=== PATIENT | female | born 1995 | race Caucasian/White ===

== ENCOUNTER 2017-09-20 01:19 | Emergency (ER) | payer OTHER, SELFPAY ==
[2017-09-20 01:31] VITALS: BP 141/83; PULSE 89; RESP 16; TEMP 37.2; O2SAT 98; BMI 44.1
[2017-09-20 01:55] LABS: Appearance,Urine CLEAR (Clear); Bilirubin,Urine Negative (Negative); Blood, Urine TRACE-I (Negative); Color,Urine YELLOW (Yellow); Glucose,Urine (UA) Negative (Negative); Ketones,Urine Negative (Negative); Leukocyte Esterase,Urine Negative (Negative); Microscopic, Urine URINE MICROSCOPIC (MICROSCOPIC); Nitrate,Urine Negative (Negative); Protein,Urine Negative (Negative); Specific Gravity, Urine >= 1.030 (1.005-1.030); Urobilinogen,Urine 0.2 EU/dl (0.2)
[2017-09-20 01:58] LABS: Urine Pregnancy, HCG Qual. Negative (Negative)
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
--- NOTE | 2017-09-20 02:12 | ED_ITS ---
ED Disposition Clinical Impression: Strain of lumbar region Qualifiers: Encounter type: initial encounter Qualified Code(s): S39.012A - Strain of muscle, fascia and tendon of lower back, initial encounter Disposition: Home, Self-Care Condition on Discharge: Good Instructions: DI for Low Back Pain Prescriptions: Cyclobenzaprine HCl [Flexeril 10mg tablet] 10 mg PO BID 30 Days #14 tab Meloxicam [Mobic 7.5mg Tab] 7.5 mg PO BID #14 tab Referrals: Chin Cole [Primary Care Provider] - - Critical Care Critical Care Time: No Attestation: On 09/20/17, the high probability of a clinically significant, sudden or life threatening deterioration of the following system(s) required my full and direct attention, intervention and personal management. The time I documented below is in addition to time spent performing reported procedures but includes the following listed in this critical care notation. Medical Decision Making Vital Signs: 09/20/17 01:31 Temperature 98.9 F Temperature Source Oral Pulse Rate [Right Brachial] 89 Respiratory Rate 16 Blood Pressure [Right Arm] 141/83 Blood Pressure Mean [Right Arm] 102 Blood Pressure Source [Right Arm] Automatic Cuff Blood Pressure Position [Right Arm] Sitting 02 Sat by Pulse Oximetry 98 Oxygen Delivery Method Room Air - Lab Data Lab results reviewed: Yes: I reviewed the patient's lab results. Lab Results 09/20/17 01:37: Urine HCG, Qual Negative 09/20/17 01:40: Urine Color Yellow, Urine Appearance Clear, Urine pH 6.0, Ur Specific [place] >= 1.030, Urine Protein Negative, Urine Glucose (UA) Negative, Urine Ketones Negative, Urine Blood Trace-i, Urine Nitrate Negative, Urine Bilirubin Negative, Urine Urobilinogen 0.2, Ur Leukocyte Esterase Negative Orders (Tests/Meds): ORDERS Category Date Time Status Urinalysis and Microscopic Stat Lab 09/20/17 01:40 Results - Akin Inquiry Pt receiving controlled substance: No [facility] History - *Social History Alcohol Intake: never - Psychiatric History Expresses thoughts of harming self/others: None Suicide Plan Description: No Plan - Constitutional Denies fever(s) - Eyes Denies change in vision - Cardiovascular Denies chest pain - Respiratory Denies cough - Genitourinary Denies abnormal vaginal bleeding, Denies difficulty starting urination - Musculoskeletal Reports back pain, Denies joint pain, Denies joint swelling - Integumentary/Breasts Denies rash - Neurologic Denies seizure-like activity, Denies lack of coordination, Denies tingling/ numbness/burning sensations Physical Exam - General General appearance: alert, in no apparent distress - Head Head exam: atraumatic - Eye Eye exam: Present: PERRL, EOMI - ENT ENT exam: Present: normal exam - Neck Neck exam: Present: normal inspection - Respiratory Respiratory exam: Absent: respiratory distress - Cardiovascular Cardiovascular exam: Present: regular rate - Abdominal Exam Abdominal exam: Absent: distention, tenderness - Extremities Exam Extremities exam: Present: normal inspection - Back Exam Back exam: Present: muscle spasm, straight leg raise (R). Absent: CVA tenderness (R) - Neurological Exam Neurological exam: Present: alert, oriented X3
[2017-09-20 02:33] LABS: Bacteria,Urine Trace /lpf; Mucus,Urine 2+ /lpf; WBC,Urine Occasional #/hpf (0-3)
== END 2017-09-20 02:29 | disposition home or self-care (01) ==
PROVIDERS: Emergency Provider Emergency Medicine; Family Provider Family Medicine; PCP Family Medicine
DX: S39.012A Strain of muscle, fascia and tendon of lower back, initial encounter (principal)
CPT/HCPCS: 81001; 81025; 99282

== ENCOUNTER 2017-12-05 16:53 | Emergency (ER) | payer OTHER, SELFPAY ==
[2017-12-05 17:19] VITALS: BP 160/80; PULSE 92; RESP 18; TEMP 36.5; O2SAT 98; BMI 46.3
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
[2017-12-05 19:09] VITALS: BP 153/84; PULSE 85; RESP 16; TEMP 36.7; O2SAT 100
== END 2017-12-05 19:13 | disposition home or self-care (01) ==
LOC: UTC 17:02 → ER 17:15
PROVIDERS: Emergency Provider Emergency Medicine; Family Provider Family Medicine; PCP Family Medicine
DX: S16.1XXA Strain of muscle, fascia and tendon at neck level, initial encounter (principal); S46.811A Strain of other muscles, fascia and tendons at shoulder and upper arm level, right arm, initial encounter; V89.2XXA Person injured in unspecified motor-vehicle accident, traffic, initial encounter; Z91.040 Latex allergy status
CPT/HCPCS: 72040; 73030; 99282

== ENCOUNTER → 2020-02-05 10:14 | Outpatient (CLI) | payer OTHER, SELFPAY ==
--- NOTE | 2020-02-05 10:20 | US_ITS ---
PROCEDURE: US THYROID CLINICAL INDICATION: HYPOTHYROIDISM COMPARISON: No exams were available for comparison FINDINGS: Right lobe: 4.1 x 1.1 x 1.2 cm. Homogeneous echogenicity without evidence of nodule. Left lobe: 4.1 x 1.1 x 1.5 cm. Homogeneous echogenicity. No nodule apparent. Isthmus: Unremarkable at 3 mm. Additional findings: IMPRESSION: Negative thyroid ultrasound. Dictated by: Cory Marks MD 02/05/2020 14:14 Electronically signed by Cory Marks MD in [place] 02/05/2020 14:14
== END ==
PROVIDERS: PCP Nurse Practitioner Family; Visit Provider Nurse Practitioner Family
DX: E03.9 Hypothyroidism, unspecified (principal)
CPT/HCPCS: 76536

== ENCOUNTER 2020-03-01 11:49 | Emergency (ER) | payer OTHER, SELFPAY ==
[2020-03-01 11:51] VITALS: BP 144/91; PULSE 68; RESP 16; TEMP 36.6; O2SAT 98; BMI 49.5
--- NOTE | 2020-03-01 12:19 | HMH.EDGENADL ---
ED Disposition Clinical Impression: Foot laceration Qualifiers: Encounter type: initial encounter Laterality: left Qualified Code(s): S91.312A - Laceration without foreign body, left foot, initial encounter Disposition: Home, Self-Care Condition on Discharge: Good Additional Instructions: Follow-up with primary care provider or emergency department if increasing pain, redness, swelling, pus drainage, red streaks, or fever. Clean area daily with soap and water. Referrals: Jimena Stoddard PA [Primary Care Provider] - - Critical Care Critical Care Time: No Attestation: On 03/01/20, the high probability of a clinically significant, sudden or life threatening deterioration of the following system(s) required my full and direct attention, intervention and personal management. The time I documented below is in addition to time spent performing reported procedures but includes the following listed in this critical care notation. Medical Decision Making - Akin Inquiry Pt receiving controlled substance: No Vital Signs: 03/01/20 11:51 Temperature 98 F Temperature Source Oral Pulse Rate [Left Radial] 68 Respiratory Rate 16 Blood Pressure [Right Arm] 144/91 H Blood Pressure Mean [Right Arm] 108 Blood Pressure Position [Right Arm] Sitting 02 Sat by Pulse Oximetry 98 Oxygen Delivery Method Room Air Orders (Tests/Meds): ED MEDICATIONS Discontinued Medications Generic Name Dose Route Start Last Admin Trade Name Freq PRN Reason Stop Dose Admin Tetanus/Reduced Diphtheria/Acell Pertussis 0.5 ml 03/01/20 12:03 03/01/20 12:11 Adacel Tdap 0.5ml Syringe IM 03/01/20 12:04 0.5 ml .ONCE ONE Administration General Adult HPI - General Chief complaint: Extremity Injury, Lower Stated complaint: left foot injury AO [id number] Time Seen by Provider: 03/01/20 12:20 Mode of Arrival: Ambulatory Limitations: No Limitations Description of Symptoms (Recalled from ER Triage Doc. by RN): to ed per pvt car pt states stepped on sarah can sunday lt foot. states she needs a tetanus shot. pt denies any c/o states she has been keeping area clean and dry. area with no redness or drainage noted - History of Present Illness HPI narrative: Patient says that on Sunday, 2 days ago, she stepped on a sarah can that had been shredded by a lawnmower. She says she has been keeping it clean but figured she should come in and get a tetanus shot. No fever. She has some pain but is able to bear weight. - Related Data Home Medications Medication Instructions Recorded Confirmed Venlafaxine HCl [Effexor XR 75mg 75 mg PO DAILY 12/05/17 12/05/17 capsule] Levocetirizine Dihydrochloride 5 mg PO DAILY 09/17/19 09/17/19 [Xyzal] Allergies Allergy/AdvReac Type Severity Reaction Status Date / Time latex [LATEX] Allergy Severe rash Verified 12/05/17 17:26 hydrocodone [HYDROCODONE] Allergy Intermediate ITCHING Verified 12/05/17 17:26 [employer] AdvReac Unknown STOMACH Uncoded 09/20/17 02:19 UPSET [facility] History - Hepatitis A Screen Drug use history?: No High risk sexual behaviors?: No History of sexually transmitted infection?: No Currently employed?: No Childcare worker?: No Do you have indoor plumbing?: Yes Do you have electricity?: Yes Attestation statement:: This patient has been screened for Hepatitis A risk factors. I have reviewed the patient's past medical history: Yes Medical History: Denies:: Diabetes Mellitus Type 1, Diabetes Mellitus Type 2, Hypertension Other Medical History: Reports: Other (PCOS, endometriosis) Laterality Cases: Left: Arthroscopy Knee, Bilateral: Myringotomy (Ear Tubes), Tonsillectomy Other Surgeries: Yes: Other (endometriosis, PCOS, laser laproscopic procedure) Amputation: No - Social History Alcohol Intake: never Occupational Status: other Housing: other Household Members: other ROS Obtained: Yes Systems reviewed as appropriate & no additional complaints - C
[2020-03-01 12:30] VITALS: BP 144/91; PULSE 68; RESP 16; TEMP 36.6; O2SAT 98
== END 2020-03-01 12:31 | disposition home or self-care (01) ==
PROVIDERS: Emergency Provider Emergency Medicine; PCP Nurse Practitioner Family
DX: S91.312A Laceration without foreign body, left foot, initial encounter (principal); W22.8XXA Striking against or struck by other objects, initial encounter; Y92.017 Garden or yard in single-family (private) house as the place of occurrence of the external cause; Z88.5 Allergy status to narcotic agent; Z91.040 Latex allergy status; Z23 Encounter for immunization
CPT/HCPCS: 90471; 90715; 99281

== ENCOUNTER 2021-01-21 18:56 | Emergency (ER) | payer OTHER, SELFPAY ==
[2021-01-21 19:00] VITALS: BP 139/87; PULSE 80; RESP 20; TEMP 37.1; O2SAT 99; BMI 50.8
--- NOTE | 2021-01-21 19:29 | HMH.EDUTC ---
[facility] [place] Disposition Clinical Impression: Needle stick injury Disposition: Home, Self-Care Condition on Discharge: Good Additional Instructions: Follow up with nurse case manager re: testing of source patient Repeat labs 6 months Prescriptions: Raltegravir Potassium [Isentress] 400 mg PO BID 30 Days #60 tab Transmission Status: Pending to [id number] Emtricitabine/Tenofovir (Tdf) [Truvada 200/300 mg Tablet] 1 each PO DAILY 30 Days #30 tab Transmission Status: Pending to [id number] Referrals: Jimena Stoddard PA [Primary Care Provider] - Time of Disposition: 19:33 Medical Decision Making - Akin Inquiry Pt receiving controlled substance: No Vital Signs: 01/21/21 19:00 Temperature 98.7 F Temperature Source Oral Pulse Rate [Right Brachial] 80 Respiratory Rate 20 Blood Pressure [Right Arm] 139/87 Blood Pressure Mean [Right Arm] 104 Blood Pressure Source [Right Arm] Automatic Cuff Blood Pressure Position [Right Arm] Sitting 02 Sat by Pulse Oximetry 99 Oxygen Delivery Method Room Air Orders (Tests/Meds): ORDERS Category Date Time Status CMP [Comprehensive Metabolic Panel] Stat Lab 01/21/21 19:07 Ordered HIV Panel [id number] Stat Lab 01/21/21 19:10 Ordered Hep B Surface Ab, Qual Stat Lab 01/21/21 19:09 Ordered Hepatitis C Antibody Stat Lab 01/21/21 19:08 Ordered Liver Panel Stat Lab 01/21/21 19:08 Ordered PT/PTT Stat Lab 01/21/21 19:[address] [facility] [place] HPI - General Stated complaint: needle stick at work Time Seen by Provider: 01/21/21 19:29 Mode of Arrival: Ambulatory Source of Information: Patient Limitations: No Limitations Description of Symptoms (Recalled from Triage Doc. by RN): PATIENT C/O NEEDLE STICK AT WORK ([employer]) ON SUNDAY AFTERNOON. 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 She immediately washed her hands with soap and water twice, then used rubbing alcohol. She reported the injury to her nurse case manager but wasn't advised to seek treatment. She does not know any history of the patient she was drawing blood on and additional testing was not ordered on that patient. Onset (ago): day(s) (3) Location: right, upper extremity Relieving factors: none Exacerbating factors: none Associated symptoms: denies other symptoms Treatments prior to arrival: none - Related Data Home Medications Medication Instructions Recorded Confirmed Venlafaxine HCl [Effexor XR 75mg 75 mg PO DAILY 12/05/17 12/05/17 capsule] Levocetirizine Dihydrochloride 5 mg PO DAILY 09/17/19 09/17/19 [Xyzal] Previous Rx's Medication Instructions Recorded Emtricitabine/Tenofovir (Tdf) 1 each PO DAILY 30 Days #30 tab 01/21/21 [Truvada 200/300 mg Tablet] Raltegravir Potassium [Isentress] 400 mg PO BID 30 Days #60 tab 01/21/21 Allergies Allergy/AdvReac Type Severity Reaction Status Date / Time latex [LATEX] Allergy Severe rash Verified 12/05/17 17:26 hydrocodone [HYDROCODONE] Allergy Intermediate ITCHING Verified 12/05/17 17:26 [employer] AdvReac Unknown STOMACH Uncoded 09/20/17 02:19 UPSET - Worker's Comp Is this a Worker's Comp case?: Yes [facility] History - Hepatitis A Screen Drug use history?: No High risk sexual behaviors?: No History of sexually transmitted infection?: No Currently employed?: No Childcare worker?: No Do you have indoor plumbing?: Yes Do you have electricity?: Yes Attestation statement:: This patient has been screened for Hepatitis A risk factors. I have reviewed the patient's past medical history: Yes Medical History: Denies:: [place]
[2021-01-21 19:32] VITALS: BP 139/87; PULSE 80; RESP 20; TEMP 37.1; O2SAT 99
[2021-01-21 19:50] LABS: Chloride 102 mmol/L (98-107); Potassium 3.8 mmoL/L (3.5-5.1); Sodium 137 mmol/L (136-145)
[2021-01-21 19:52] LABS: Alanine Aminotransferase 19 U/L (12-78); Albumin Level 4.4 g/dl (3.5-5.0); Alkaline Phosphatase 129 U/L (38-126); Aspartate Amino Transferase 25 U/L (14-36); Bilirubin,Direct 0.4 mg/dl (0.0-0.4); Bilirubin,Indirect 0.1 mg/dL (0.0-0.9); Bilirubin,Total 0.5 mg/dl (0.2-1.3); Bilirubin,Unconjugated 0.2 mg/dL (0.0-1.1); Blood Urea Nitrogen 9 mg/dl (7-17); Creatinine Clearance Estimated 101 mL/min (50-200); Estimated Glomerular Filt Rate 101 ml/min (>60); GFR (African American) 122 ML/MIN (>60)
[2021-01-21 19:53] LABS: Alanine Aminotransferase 19 U/L (12-78); Albumin Level 4.3 g/dl (3.5-5.0); Albumin/Globulin Ratio 1.2 (1.1-1.8); Alkaline Phosphatase 126 U/L (38-126); Anion Gap 10.8 mEq/L (5-15); Aspartate Amino Transferase 26 U/L (14-36); Bilirubin,Total 0.6 mg/dl (0.2-1.3); Calcium 9.3 mg/dl (8.4-10.2); Carbon Dioxide 28 mmol/L (22.0-30.0); Globulin 3.7 g/dL (1.3-3.2); Glucose 112 mg/dl (74-100)
[2021-01-21 20:05] LABS: Activated Partial Thrombo Time 26.9 seconds (22.8-30.6); Prothrombin Time 10.7 seconds (10.1-12.5)
[2021-01-23 12:35] LABS: HIV Screen 4th Generation wRfx Non Reactive (Non Reactive); Hep B Surface Ab, Qual Reactive (.); Hepatitis C Antibody <0.1 s/co ratio (0.0-0.9)
== END 2021-01-21 19:35 | disposition home or self-care (01) ==
PROVIDERS: Emergency Provider Physician Assistant; PCP Nurse Practitioner Family
DX: S61.431A Puncture wound without foreign body of right hand, initial encounter (principal); W22.8XXA Striking against or struck by other objects, initial encounter; Y92.69 Other specified industrial and construction area as the place of occurrence of the external cause; Y99.0 Civilian activity done for income or pay
CPT/HCPCS: 80053; 80076; 85610; 85730; 86703; 86706; 87380; 99202; G0432; G0463

== ENCOUNTER → 2021-09-08 16:47 | Outpatient (CLI) | payer OTHER, SELFPAY | PROVIDERS: Visit Provider Nurse Practitioner | DX: U07.1 COVID-19 (principal) | CPT/HCPCS: C9803; U0003; U0005 ==

== ENCOUNTER 2022-05-29 20:14 | Emergency (ER) | payer OTHER, SELFPAY ==
--- NOTE | 2022-05-29 19:58 | ECG_ITS ---
APPROVED REPORT Exam: Resting ECG HR:91 bpm ECG Measurements Heart Rate 91 AXES [place] 115 P 62 QRSd 107 QRS 61 QT 353 T 44 QTc 402 Conclusion SINUS RHYTHM WITH SINUS ARRHYTHMIA WITH SHORT [place] INTERVAL BORDERLINE ECG UNCONFIRMED REPORT Electronically signed by : Luc Haynes MD 05/30/2022 15:44:26
[2022-05-29 20:14] VITALS: BP 142/86; PULSE 92; RESP 16; TEMP 37; O2SAT 98; BMI 51.3
[2022-05-29 20:27] VITALS: PULSE 92
--- NOTE | 2022-05-29 20:29 | XR_ITS ---
PROCEDURE INFORMATION: Exam: XR Chest Exam date and time: 05/29/2022 9:02 PM Age: 26 years old Clinical indication: Shortness of breath; Sternal or substernal pain; Additional info: Chest pain TECHNIQUE: Imaging protocol: Radiologic exam of the chest. Views: 2 views. COMPARISON: CR CXR CHEST(2 VIEWS-NOT PORTABLE) 06/10/2016 7:49 PM FINDINGS: Lungs: No consolidation. Pleural spaces: No pneumothorax. Heart/Mediastinum: No cardiomegaly. Bones/joints: No acute fracture. IMPRESSION: No acute findings.
[2022-05-29 20:47] LABS: Basophils # 0.1 K/mm3 (0-0.2); Basophils % 0.9 % (0.1-2.0); Eosinophils # 0.2 K/mm3 (0.0-0.4); Eosinophils % 1.1 % (0.1-12.0); Hemoglobin 11.6 g/dL (12.2-16.2); Lymphocytes # 3.1 K/mm3 (0.7-4.5); Mean Corpuscular HGB Conc 32.3 g/dL (31.8-35.4); Mean Corpuscular Volume 74.3 fl (81-99); Mean Platelet Volume 7.4 fl (7.4-10.4); Monocytes # 0.5 K/mm3 (0.1-1.0); Monocytes % 3.7 % (1.7-9.3); Neutrophils # 10.7 K/mm3 (1.8-7.8); Neutrophils % 73.4 % (37.0-80.0); Platelet Count 388 K/mm3 (142-424); Red Blood Count 4.85 M/mm3 (4.20-5.40); Red Cell Distribution Width 14.8 % (11.5-17.5); White Blood Count 14.6 K/mm3 (4.8-10.8)
[2022-05-29 21:06] LABS: Alanine Aminotransferase 24 U/L (12-78); Albumin Level 4.1 g/dl (3.5-5.0); Alkaline Phosphatase 133 U/L (38-126); Anion Gap 14.8 mEq/L (5-15); Aspartate Amino Transferase 28 U/L (14-36); Blood Urea Nitrogen 9 mg/dl (7-17); Calcium 8.8 mg/dl (8.4-10.2); Carbon Dioxide 28 mmol/L (22.0-30.0); Chloride 99 mmol/L (98-107); Creatinine Clearance Estimated 87 mL/min (50-200); Estimated Glomerular Filt Rate 86 ml/min (>60); GFR (African American) 104 ML/MIN (>60); Glucose 95 mg/dl (74-100); Potassium 3.8 mmoL/L (3.5-5.1); Sodium 138 mmol/L (136-145); Total Protein,Serum 7.6 g/dl (6.3-8.2)
[2022-05-29 21:07] LABS: Microscopic, Urine URINE MICROSCOPIC (MICROSCOPIC)
[2022-05-29 21:10] LABS: Appearance,Urine CLEAR (Clear); Bilirubin,Urine Negative (Negative); Blood, Urine Negative (Negative); Color,Urine YELLOW (Yellow); Glucose,Urine (UA) Negative (Negative); Ketones,Urine Negative (Negative); Leukocyte Esterase,Urine TRACE (Negative); Nitrate,Urine Negative (Negative); PH,Urine 6.5 (5.0-8.5); Protein,Urine Negative (Negative)
[2022-05-29 21:15] LABS: Bilirubin,Indirect 0.1 mg/dL (0.0-0.9); Bilirubin,Total < 0.1 mg/dl (0.2-1.3)
[2022-05-29 21:24] LABS: T4 (Thyroxine) 13.4 ug/dl (5.53-11.0)
[2022-05-29 21:34] LABS: Urine Pregnancy, HCG Qual. Negative (Negative)
[2022-05-29 21:35] LABS: Troponin I < 0.01 ng/ml (0.00-0.034)
--- NOTE | 2022-05-29 21:36 | PC.NURSE ---
Pt says pain is 0/10 currently
[2022-05-29 21:38] LABS: Thyroid Stimulating Hormone 2.14 uIU/mL (0.465-4.68)
[2022-05-29 21:52] LABS: Bacteria,Urine 1+ /lpf
--- NOTE | 2022-05-29 22:30 | CT_ITS ---
PROCEDURE INFORMATION: Exam: CTA Chest With Contrast Exam date and time: 05/29/2022 10:47 PM Age: 26 years old Clinical indication: Sternal or substernal pain; Additional info: Cp TECHNIQUE: Imaging protocol: Computed tomographic angiography of the chest with contrast. 3D rendering (Not supervised by radiologist): MIP and/or 3D reconstructed images were created by the technologist. Radiation optimization: All CT scans at this facility use at least one of these dose optimization techniques: automated exposure control; mA and/or kV adjustment per patient size (includes targeted exams where dose is matched to clinical indication); or iterative reconstruction. Contrast material: ISOVU; Contrast volume: 70 ml; Contrast route: INTRAVENOUS (IV); COMPARISON: CR XR CHEST 2V 05/29/2022 9:02 PM FINDINGS: Pulmonary arteries: Normal. No pulmonary emboli. Aorta: Unremarkable. No aortic aneurysm. No aortic dissection. Lungs: Unremarkable. No consolidation. No masses. Pleural spaces: Unremarkable. No pneumothorax. No pleural effusion. Heart: Unremarkable. No cardiomegaly. No pericardial effusion. Lymph nodes: Unremarkable. No enlarged lymph nodes. Bones/joints: Unremarkable. No acute fracture. Soft tissues: Unremarkable. IMPRESSION: No acute findings.
--- NOTE | 2022-05-29 22:30 | HMH.EDCP ---
Discharge Plan Disposition Patient Disposition: Home, Self-Care Chief Complaint: Chest Pain Prescriptions Prescriptions: No Action famotidine 40 mg tablet 40 mg PO DAILY venlafaxine 150 mg capsule,extended release 24hr 150 mg PO DAILY levothyroxine [Euthyrox] 50 mcg tablet 50 mcg PO DAILY pantoprazole 40 mg tablet,delayed release (DR/EC) 40 mg PO DAILY levalbuterol tartrate 45 mcg/actuation HFA aerosol inhaler 1 g INHALATION DAILY Xhance 93 mcg/actuation aerosol breath activated 1 spray INTRANASAL BID Rx Instructions: into each nostril cholecalciferol (vitamin D3) 1,250 mcg (50,000 unit) capsule 1,250 mcg PO WEEKLY ascorbic acid (vitamin C) 500 mg capsule 500 mg PO DAILY levocetirizine 5 MG tablet 5 mg PO DAILY aripiprazole [Abilify] 5 mg tablet 5 mg PO QHS Referrals Follow up/Referrals: Lito Jimenez MD [Primary Care Provider] - See instructions Clinical Impressions Clinical Impression: Chest pain of uncertain etiology Instructions Patient Instructions: DI for Atypical Chest Pain Discharge ED Provider: Lm Jama Chest Pain HPI General Chief Complaint: Chest Pain Stated Complaint: CP Time Seen by Provider: 05/29/22 22:30 Mode of Arrival: Ambulatory Source of Information: Patient and Medical Record Limitations: No Limitations Description of Symptoms (Recalled from ER Triage Doc. by RN): PT REPORTS SHE BEGAN HAVING INTERMITT CHEST PAIN AT 1500 TODAY. PT REPORTS PREVIOUS HX OF TACHYCARDIA. History of Present Illness HPI narrative: pt with acute onset of lt sided chest pain worse with inspiration - no fever /trauma or rash complaint: chest pain indicative of cardiac Onset (ago): hour(s) Duration: intermittent Activity at onset: during rest Pain location: left chest Severity: moderate Quality: sharp Relieving factors: nothing Associated symptoms: dyspnea Risk Factors for CAD: Family Hx of CAD Treatments prior to or on arrival for Cardiac Chest Pain: none DARY Score for Non-Stemi Age of Patient: <30 years old Heart Rate: 90-109 bpm Systolic Blood Pressure: 140-159 mmHg Serum Creatinine: 0.80-1.19 mg/dl CHF [place] Class: I-No CHF Other Risk Factors: None Non-Stemi Risk Score: 46 Related Data On Oral Contraceptives: No Home Medications Medication Instructions Recorded Confirmed levocetirizine 5 mg tablet 5 mg PO DAILY ALLERGIES 09/17/19 05/29/22 ascorbic acid (vitamin C) 500 mg 500 mg PO DAILY Supplement 10/12/21 05/29/22 capsule cholecalciferol (vitamin D3) 1,250 1,250 mcg PO WEEKLY Supplement 10/12/21 05/29/22 mcg (50,000 unit) capsule famotidine 40 mg tablet 40 mg PO DAILY GERD 10/12/21 05/29/22 fluticasone propionate 93 1 spray intranasal BID ALLERGIES 10/12/21 05/29/22 mcg/actuation breath activated aerosol (Xhance) levalbuterol tartrate 45 1 g inhalation DAILY ALLERGIES 10/12/21 05/29/22 mcg/actuation aerosol inhaler levothyroxine 50 mcg tablet 50 mcg PO DAILY HYPOTHYRODISM 10/12/21 05/29/22 (Euthyrox) pantoprazole 40 mg tablet,delayed 40 mg PO DAILY GERD 10/12/21 05/29/22 release venlafaxine 150 mg 150 mg PO DAILY Depression 10/12/21 05/29/22 capsule,extended release 24 hr aripiprazole 5 mg tablet (Abilify) 5 mg PO QHS Depression 05/29/22 05/29/22 Allergies Allergy/AdvReac Type Severity Reaction Status Date / Time latex [LATEX] Allergy Severe rash Verified 05/17/22 09:53 hydrocodone [HYDROCODONE] Allergy Intermediate ITCHING Verified 05/17/22 09:53 DAIRY PRODUCTS AdvReac Unknown STOMACH Uncoded 02/17/22 14:06 UPSET [facility] Medical History (Updated 05/30/22 @ 00:07 by Lm Jama MD) Anxiety Depression GERD (gastroesophageal reflux disease) Social History Smoking Status: Never smoker alcohol intake: current substance use type: denies use and marijuana current occupational status: employed and other Travel in the last 8 weeks: None household m
[2022-05-29 23:30] LABS: Troponin I < 0.01 ng/ml (0.00-0.034)
[2022-05-30 00:09] VITALS: BP 143/88; PULSE 98; RESP 16; TEMP 36.7; O2SAT 100
== END 2022-05-30 00:10 | disposition home or self-care (01) ==
PROVIDERS: Emergency Provider Emergency Medicine; PCP Internal Medicine Adolescent Medicine
DX: R07.9 Chest pain, unspecified (principal); Z82.49 Family history of ischemic heart disease and other diseases of the circulatory system
CPT/HCPCS: 71046; 71275; 80048; 80076; 81001; 81025; 84436; 84443; 84484; 85025; 93005; 96360; 99285; Q9967

== ENCOUNTER 2022-06-19 09:45 | Emergency (ER) | payer OTHER, SELFPAY ==
[2022-06-19 10:50] VITALS: BP 151/90; PULSE 86; RESP 19; TEMP 36.8; O2SAT 99; BMI 51.3
--- NOTE | 2022-06-19 10:58 | XR_ITS ---
FINAL REPORT CLINICAL HISTORY: fall FINDINGS: RIGHT FOOT Three views of the right foot demonstrate no acute fracture or dislocation. The visualized joint spaces are normally aligned. The joint spaces are preserved. There is a small plantar calcaneal spur. The soft tissues are unremarkable. IMPRESSION: No acute bony abnormality. Reviewed, Interpreted and Dictated by Basilio Pepe III, MD Transcribed by Chanel Worrell Authenticated and [facility]
--- NOTE | 2022-06-19 10:58 | XR_ITS ---
FINAL REPORT CLINICAL HISTORY: fall FINDINGS: RIGHT ANKLE Three views of the right ankle were obtained. There is no acute fracture or dislocation. The joint spaces and mortise are intact. There is a small plantar calcaneal spur. There is no soft tissue abnormality. IMPRESSION: No acute bony abnormality. Reviewed, Interpreted and Dictated by Basilio Pepe III, MD Transcribed by Chanel Worrell Authenticated and [facility]
--- NOTE | 2022-06-19 10:58 | XR_ITS ---
FINAL REPORT CLINICAL HISTORY: fall FINDINGS: RIGHT TIBIA FIBULA 2 views were obtained. There is no acute fracture or dislocation. The joint spaces are intact. There is no soft tissue abnormality. IMPRESSION: No acute bony abnormality. Reviewed, Interpreted and Dictated by Basilio Pepe III, MD Transcribed by Chanel Worrell Authenticated and [facility]
--- NOTE | 2022-06-19 11:08 | EXP.UTC ---
Discharge Plan Disposition Patient Disposition: Home, Self-Care Condition: Good Prescriptions Prescriptions: New ibuprofen [ibuprofen] 600 mg tablet 600 mg PO Q6HP PRN (Reason: Mild Pain) Qty: 30 0RF No Action famotidine 40 mg tablet 40 mg PO DAILY venlafaxine 150 mg capsule,extended release 24hr 150 mg PO DAILY levothyroxine [Euthyrox] 50 mcg tablet 50 mcg PO DAILY pantoprazole 40 mg tablet,delayed release (DR/EC) 40 mg PO DAILY levalbuterol tartrate 45 mcg/actuation HFA aerosol inhaler 1 g INHALATION DAILY Xhance 93 mcg/actuation aerosol breath activated 1 spray INTRANASAL BID Rx Instructions: into each nostril cholecalciferol (vitamin D3) 1,250 mcg (50,000 unit) capsule 1,250 mcg PO WEEKLY ascorbic acid (vitamin C) 500 mg capsule 500 mg PO DAILY levocetirizine 5 MG tablet 5 mg PO DAILY aripiprazole [Abilify] 5 mg tablet 5 mg PO QHS Referrals Follow up/Referrals: Lima Bates APRN [Primary Care Provider] - See instructions Activity Restrictions/Add. Instructions Additional Instructions/Restrictions: Rest the extremity, apply ice for 15 minutes as tolerated three or four times per day, Wear the danay wrap for compression, Elevate the extremity as tolerated while you are resting. Take ibuprofen for pain. I sent in a prescription to your pharmacy. Follow up with Dr. Lopez (orthopedics). Sometimes there can be fractures that don't show up well on the first set of x-rays. So, you should follow up if you continue to have symptoms. I put in a referral but you need to call his office and schedule an appointment. Follow up with your regular doctor. GO TO THE ER FOR ANY WORSENING SYMPTOMS Clinical Impressions Clinical Impression: Contusion of leg, right, Leg pain, right Stand Alone Forms Stand Alone Forms: Work/School Release Instructions Patient Instructions: Contusion, DI for Contusion, DI for Leg Pain Discharge ED Provider: Lito Collins [facility] General Stated complaint: [id number] right leg pain, skating rink Mode of Arrival: Ambulatory Source of Information: Patient Limitations: No Limitations Time Seen by Provider: 06/19/22 11:08 Description of Symptoms (Recalled from Triage Doc. by RN): PATIENT C/O INJURY TO RIGHT LOWER LEG AFTER FALLING AT SKATING RINK LAST NIGHT HEENT Symptoms (Recalled from RN notes): No Resp Symptoms (Recalled from RN notes): No Skin Symptoms (Recalled from RN notes): No MS Symptoms (Recalled from RN notes): Yes Functional Status (Recalled from RN notes): WNL History of Present Illness Provider Complaint: She states that she fell while roller skating yesterday. She has had right upper leg pain since then. Related Data Home Medications Medication Instructions Recorded Confirmed levocetirizine 5 mg tablet 5 mg PO DAILY ALLERGIES 09/17/19 05/29/22 ascorbic acid (vitamin C) 500 mg 500 mg PO DAILY Supplement 10/12/21 05/29/22 capsule cholecalciferol (vitamin D3) 1,250 1,250 mcg PO WEEKLY Supplement 10/12/21 05/29/22 mcg (50,000 unit) capsule famotidine 40 mg tablet 40 mg PO DAILY GERD 10/12/21 05/29/22 fluticasone propionate 93 1 spray intranasal BID ALLERGIES 10/12/21 05/29/22 mcg/actuation breath activated aerosol (Xhance) levalbuterol tartrate 45 1 g inhalation DAILY ALLERGIES 10/12/21 05/29/22 mcg/actuation aerosol inhaler levothyroxine 50 mcg tablet 50 mcg PO DAILY HYPOTHYRODISM 10/12/21 05/29/22 (Euthyrox) pantoprazole 40 mg tablet,delayed 40 mg PO DAILY GERD 10/12/21 05/29/22 release venlafaxine 150 mg 150 mg PO DAILY Depression 10/12/21 05/29/22 capsule,extended release 24 hr aripiprazole 5 mg tablet (Abilify) 5 mg PO QHS Depression 05/29/22 05/29/22 Previous Rx's Medication Instructions Recorded ibuprofen 600 mg tablet 600 mg PO Q6HP PRN Mild Pain #30 06/19/22 tabs Allergies Allergy/AdvReac Type Severity Reaction Status Date / Time la
[2022-06-19 11:47] VITALS: BP 151/90; PULSE 86; RESP 19; TEMP 36.8; O2SAT 99
== END 2022-06-19 11:48 | disposition home or self-care (01) ==
PROVIDERS: Emergency Provider Nurse Practitioner Family; PCP Nurse Practitioner Family
DX: S70.11XA Contusion of right thigh, initial encounter (principal); K21.9 Gastro-esophageal reflux disease without esophagitis; G43.909 Migraine, unspecified, not intractable, without status migrainosus; E07.9 Disorder of thyroid, unspecified; F32.A Depression, unspecified; F41.9 Anxiety disorder, unspecified; Z79.1 Long term (current) use of non-steroidal anti-inflammatories (NSAID); Z79.51 Long term (current) use of inhaled steroids; Z79.52 Long term (current) use of systemic steroids; Z79.899 Other long term (current) drug therapy; Z88.5 Allergy status to narcotic agent; Z88.6 Allergy status to analgesic agent; Z88.8 Allergy status to other drugs, medicaments and biological substances; Z91.040 Latex allergy status; Z91.011 Allergy to milk products; Z96.641 Presence of right artificial hip joint; V00.211A Fall from ice-skates, initial encounter; Y93.21 Activity, ice skating; Y92.89 Other specified places as the place of occurrence of the external cause
CPT/HCPCS: 73590; 73610; 73630; 99213; G0463

== ENCOUNTER → 2023-09-13 14:58 | Outpatient (CLI) | payer OTHER, SELFPAY ==
--- OUTSIDE RECORDS SUMMARY | 2023-09-13 15:01 | XMS_ITS | Patient Health Record ---
Author Name Unknown Organization [facility] Address [address] [place] [address] Care Team Providers Care Care Process Manager Name Role Phone Luc Haynes Primary Care Provider Lima Bates [phone] ALLERGIES Allergen (clinical drug ingredient) Drug/Non Drug Allergy documented on EMR Reaction Allergy Type Onset Date Status Hydrocodone (uncoded) itches Allergy Active Latex latex (uncoded) Unknown Allergy Acti ve Milk milk (uncoded) Unknown Allergy Activ e MEDICATIONS Medication SIG (Take, Route, Frequency, Duration) Notes Start Date End Date Status Ondansetron Hydrochloride 4 mg 1 tab(s) orally every 6 hours as needed for nausea for 3 days 08/15/2022 Active famotidine 40 mg 1 tab(s) orally once a day (at bedtime) for 90 days Active Centrum Ultra Women's Active Euthyrox 100 mcg (0.1 mg) TAKE 1 TABLET ONCE DAILY for 30 days Active pantoprazole 40 mg 1 tab(s) orally once a day for 90 days Active Xyzal 5 mg 1 tab(s) orally once a day (in the evening) Active biotin 5000 mcg 1 tab(s) orally once a day Active venlafaxine 150 mg 1 cap(s) orally once a day for 90 days Active Vitamin C 250 mg 1 tab(s) orally once a day for 30 day(s) Active Xhance 93 mcg/inh 1 spray(s) in each nostril 2 times a day Active azelastine nasal 137 mcg/inh 2 spray(s) intranasally 2 times a day for 30 day(s) Active Vitamin D2 50,000 intl units 1 cap(s) orally once a week for 30 day(s) Active MiraLax - 17 g orally once a d ay for 1 day(s) Active IMMUNIZATIONS Vaccine Route Administration Date Status Comme nts HPV4 (Gardasil Vaccine Dose 3-VFC) IM Intramuscular 03/13/2011 Administered HPV4 (Gardasil Vaccine Dose 2-VFC) IM Intramuscular 11/07/2010 Administered Gardisil (HPV4) VFC IM Intramuscular 08/18/2010 Administer ed Fluvirin--Influenza vaccine 3+ year IM Intramuscular 07/20/2010 Administered SOCIAL HISTORY Sex Assigned At : Social History Observation Description Sex Assigned At Unknown PROBLEMS Problem Type ICD Code Onset Dates Problem Status W/U Status Risk SNOMED Code Notes Problem Headache (784.0) Active confirmed Heada latrell (62514374) Problem Knee Pain (719.46) Active confirmed Kne e pain (8945249053) Problem Migraine without aura, with intractable migraine, with status migrainosus (346.13) Active confirmed Intractable migraine without aura (776694289) Problem Acquired hypothyroidism (E03.9) Active confirmed 227142613 Problem Mood disorder (F39) Active confirmed 46 078405 Problem Menometrorrhagia (N92.1) Active confirmed 457535159 Problem 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) Active confirmed 20827704 Problem COVID-19 (U07.1) Active confirmed 80638 9006 Problem Gastroesophageal reflux disease, unspecified whether esophagitis present (K21.9) Active confirmed 020194785 Encounters Encounter Location Date Provider Diagnosis [facility] [address] [facility] [address] [place] [address] 03/19/2023 Luc Haynes [facility] [address] [place], [place] [address] 05/07/2023 Luc Haynes [facility] [place] [address] [place] [address] 02/21/2023 Lima Bates PLAN OF TREATMENT Pending Test Test Name Order Date X ray : Knee, Right 05/26/2009 Physical Therapy 04/14/2009 Physical Therapy 05/25/2008 Physical Therapy 05/27/2008 H-CBC with AUTO DIFF 09/21/2011 H-CBC with AUTO DIFF 07/04/2010 H-CBC with AUTO DIFF 05/18/2011 H-VITAMIN B12 05/18/2011 H-BMP 07/04/2010 H-BMP 09/21/2011 H-CMP 05/18/2011 H-TSH 05/18/2011 H-FREE T4 05/18/2011 H-SED RATE 05/18/2011 H- SERUM QUAL 09/21/2011 Future Test Test Name Order Date CT Scan : Head, with/without contrast Insurance Providers Payer Name Payer Address Payer Phone Subscriber Number Group Number Insured Name Patient Relationship to Insured Coverage Start Date Coverage End Date [employer] [address] [address] [place] [address] [id number] Kaleigh Jackson Self - patient is the insured MEDICAL (GENERAL) HISTORY Medical History History ICD Code ADD migraine headaches Hypothyroidism endometriosis Pilondial cyst anxiety / depression Surgical History Surgery Date(Month/Year) tonsillectomy 2003 Bilateral ear tubes appendix removed 2011 Lt knee 2012
--- NOTE | 2023-09-13 15:09 | ECG_ITS ---
APPROVED REPORT Exam: Resting ECG HR:94 bpm ECG Measurements Heart Rate 94 AXES [place] 118 P 54 QRSd 103 QRS 36 QT 371 T 11 QTc 422 Conclusion SINUS RHYTHM WITH SINUS ARRHYTHMIA WITH SHORT NY INTERVAL BORDERLINE ECG UNCONFIRMED REPORT Electronically signed by : Luc Haynes MD 09/14/2023 07:47:22
[2023-09-13 15:14] LABS: Microscopic, Urine URINE MICROSCOPIC (MICROSCOPIC)
[2023-09-13 15:40] LABS: Urine Pregnancy, HCG Qual. Negative (Negative)
[2023-09-13 15:44] LABS: Basophils # 0.1 K/mm3 (0-0.2); Basophils % 0.6 % (0.1-2.0); Eosinophils # 0.2 K/mm3 (0.0-0.4); Eosinophils % 1.9 % (0.1-12.0); Hematocrit 31.4 % (37.0-47.0); Hemoglobin 10.5 g/dL (12.2-16.2); Lymphocytes # 2.4 K/mm3 (0.7-4.5); Lymphocytes % 25.5 % (10-50); Mean Corpuscular HGB Conc 33.4 g/dL (31.8-35.4); Mean Corpuscular Hemoglobin 22.2 pg (27.0-31.2); Mean Corpuscular Volume 66.4 fl (81-99); Mean Platelet Volume 7.7 fl (7.4-10.4); Monocytes # 0.4 K/mm3 (0.1-1.0); Monocytes % 4.1 % (1.7-9.3); Neutrophils # 6.3 K/mm3 (1.8-7.8); Neutrophils % 67.9 % (37.0-80.0); Platelet Count 352 K/mm3 (142-424); Red Blood Count 4.72 M/mm3 (4.20-5.40); Red Cell Distribution Width 15.8 % (11.5-17.5); White Blood Count 9.2 K/mm3 (4.8-10.8)
[2023-09-13 16:45] LABS: Blood Urea Nitrogen 13 mg/dl (7-17); Calcium 8.4 mg/dl (8.4-10.2); Carbon Dioxide 25 mmol/L (22.0-30.0); Chloride 104 mmol/L (98-107); Estimated Glomerular Filt Rate 75 ml/min (>60); GFR (African American) 90 ML/MIN (>60); Glucose 89 mg/dl (74-100); Sodium 135 mmol/L (136-145)
[2023-09-13 22:11] LABS: Appearance,Urine CLEAR (Clear); Bilirubin,Urine Negative (Negative); Blood, Urine Negative (Negative); Color,Urine YELLOW (Yellow); Glucose,Urine (UA) Negative (Negative); Ketones,Urine Negative (Negative); Leukocyte Esterase,Urine Negative (Negative); Nitrate,Urine Negative (Negative); Protein,Urine Negative (Negative); Specific Gravity, Urine >= 1.030 (1.005-1.030); Urobilinogen,Urine 0.2 EU/dl (0.2)
[2023-09-13 22:44] LABS: Bacteria,Urine 2+ /lpf
== END ==
LOC: LAB 14:59
PROVIDERS: PCP Internal Medicine; Visit Provider Surgery
DX: Z01.812 Encounter for preprocedural laboratory examination (principal); K42.9 Umbilical hernia without obstruction or gangrene
CPT/HCPCS: 36415; 80048; 81001; 81025; 85025; 87086; 93005

== ENCOUNTER 2023-09-20 06:00 | Day surgery (SDC) | payer OTHER, SELFPAY ==
[2023-09-13 13:55] VITALS: BMI 54.0
--- NOTE | 2023-09-19 10:21 | SUR.PREOP ---
Dr. Azevedo made aware of pt's UA results, no new orders.
[2023-09-20] VITALS (13 sets, daily range): BP systolic 130–150; BP diastolic 69–99; PULSE 78–108; RESP 16–18; TEMP 36.2–43; O2SAT 96–100
--- OUTSIDE RECORDS SUMMARY | 2023-09-20 06:03 | XMS_ITS | Patient Health Record ---
Author Name Unknown Organization [facility] Address [address] [place] [address] Care Team Providers Care Liability Claims Manager Name Role Phone Luc Haynes Primary Care Provider [phone] Lima Bates [phone] ALLERGIES Allergen (clinical drug ingredient) Drug/Non Drug [...] Problem Headache (784.0) Active confirmed Heada latrell (44124249) Problem Knee Pain (719.46) Active confirmed Kne e pain (7449359237) Problem Migraine without aura, with intractable migraine, with status migrainosus (346.13) Active confirmed Intractable migraine without aura (782480278) Problem Acquired hypothyroidism (E03.9) Active confirmed 576461357 Problem Mood disorder (F39) Active confirmed 46 277410 Problem Menometrorrhagia (N92.1) Active confirmed 366134458 Problem 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) Active confirmed 47443250 Problem COVID-19 (U07.1) Active confirmed 23970 9006 Problem Gastroesophageal reflux disease, unspecified whether esophagitis present (K21.9) Active confirmed [id number] Encounters Encounter Location Date Provider Diagnosis [facility] [address] [facility] [address] [place] [address] 03/19/2023 Luc Haynes [facility] [place] [address] [place], [place] [address] 05/07/2023 Luc Haynes [facility] [place] [address] [place] [address] 02/21/2023 Lima Bates PLAN OF TREATMENT Pending Test Test Name Order Date X ray : Knee, Right 05/26/2009 Physical Therapy 05/25/2008 Physical Therapy 05/27/2008 Physical Therapy 04/14/2009 H-CBC with AUTO DIFF 05/18/2011 H-CBC with AUTO DIFF 09/21/2011 H-CBC with AUTO DIFF 07/04/2010 H-VITAMIN B12 05/18/2011 H-BMP 07/04/2010 H-BMP 09/21/2011 H-CMP 05/18/2011 H-TSH 05/18/2011 H-FREE T4 05/18/2011 H-SED RATE 05/18/2011 H- SERUM QUAL 09/21/2011 Future Test Test Name Order Date CT Scan : Head, with/without contrast Insurance Providers Payer Name Payer Address Payer Phone Subscriber Number Group Number Insured Name Patient Relationship to Insured Coverage Start Date Coverage End Date [employer] [address] [address] [place] [phone] [id number] Kaleigh Jackson Self - patient is the insured MEDICAL (GENERAL) HISTORY Medical History History ICD Code ADD migraine headaches Hypothyroidism endometriosis Pilondial cyst anxiety / depression Surgical History Surgery Date(Month/Year) tonsillectomy 2003 Bilateral ear tubes appendix removed 2011 Lt knee 2012
[2023-09-20] MEDS: LACTATED RINGERS 1000ML 1,000 ML 100 ML IV (06:23)
[2023-09-20] MEDS: CEFAZOLIN SODIUM 2 GM in 0.9 % SODIUM CHLORIDE 100 ML IV (07:07)
--- NOTE | 2023-09-20 07:21 | P.PNANES_ITS ---
[facility] Disclaimer: The information contained in this section may have been updated after the patient was seen, as this information can be updated by other users. Medical History Anxiety Depression GERD (gastroesophageal reflux disease) Migraine Thyroid disease Urinary tract infection Surgical History History of appendectomy History of colonoscopy History of left knee surgery History of placement of ear tubes History of right hip replacement History of tonsillectomy and adenoidectomy History of wisdom tooth extraction Hx of tympanostomy tubes Family History Other Family history of TIAs Family history of diabetes mellitus type II Family history of myocardial infarction Prostate cancer Social History Smoking Status: Never smoker alcohol intake: current substance use type: denies use and marijuana current occupational status: employed and other Travel in the last 8 weeks: None household members: other housing: other number of children: 0 [facility] Anesthesia Checklist Patient Identification Patient Identification: Arm Band Structural Data Admitted From: Home Planned Operative Procedure/s: Open Umbilical Hernia Repair Consent for Planned Operative Procedure(s) Verified: Yes Verified Documents: Surgical Consent and History and Physical NPO Status Verified Time NPO: 00:00 Additional verifications Anesthesia Reactions: No Hx Blood Transfusions: No Blood Transfusion Reaction: No Airway Assessment Mallampati Score:: Class II C-Spine Mobility Assessed: Yes TMJ Mobility Assessed: Yes Dentition: Good Dentition Neurological Assessment Level of Consciousness: Awake and Alert Anesthesia Plan Anesthesia Risk discussed: Yes Anesthesia Plan: Verified ASA Class: III Anesthesia Type: General
--- NOTE | 2023-09-20 08:02 | P.OP_ITS ---
Date of procedure: 09/20/23 Pre-op Diagnosis:: Umbilical hernia Post-op Diagnosis:: Same Procedure performed:: Open primary repair of umbilical hernia Surgeon:: Anmol Azevedo MD ADMINISTRATIVE SUPPORT COORDINATOR:: Anthony Young Anesthesia: ALIX Estimated blood loss (mL): 15 Operative findings:: Less than 1 cm fingertip defect at umbilicus Primary repair with 0 Ethibond Operative note:: After informed consent was obtained the patient was taken to the operating room and placed in the supine position. General anesthesia was induced and her abdomen was prepped and draped in a sterile fashion. After infiltration with local anesthetic a curvilinear infraumbilical incision was made. The umbilical stump was carefully elevated prior to transection with electrocautery. A less than 1 cm fingertip defect at the umbilicus was noted. The fascial margin was reapproximated with interrupted 0 Ethibond. The umbilical stump was reapproximated with 2-0 Vicryl. Skin was then closed with interrupted 4-0 Monocryl in a mattress fashion to facilitate hemostasis. Dressings were applied and the patient was transferred to recovery in stable condition after extubation. Condition: stable Disposition: PACU Specimens:: None Complications:: No immediate
--- NOTE | 2023-09-20 08:11 | P.PNANES_ITS ---
[facility] Anesthesia Record Part I Anesthesia Record I Intake, IV Amount: 900 Hydration: Adequate Estimated blood loss (mL): 5 Urine output (mL): 0 Blood Products used (#): none Blood Pressure: 130/69 SaO2: 96 Pulse Rate: 105 Airway Patency: Patent Respiratory Rate: 16 Temperature: 97.2 F Patient is:: Drowsy and Stable Stable to PACU at:: 08:10
--- NOTE | 2023-09-20 10:53 | P.PNANES_ITS ---
[facility] Anesthesia Record Part II Anesthesia Record Part II Discharge Time: 08:40 Destination: Surgical Day Care (OP Surgery) PACU nurse assessment reviewed?: Yes Patient Condition:: Good Anesthesia Complications:: None Swallowing reflex intact?: Yes Airway Patency: Patent Cyanosis?: No Blood Pressure: 143/99 SaO2: 100 Respiratory Rate: 16 Pulse Rate: 88 Temperature: 97.9 F Mental Status: Alert & Oriented Pain level:: 3 Nausea and/or vomitting:: None Intake, IV Amount: 0 Hydration: Adequate
== END 2023-09-20 09:50 | disposition home or self-care (01) ==
PROVIDERS: PCP Nurse Practitioner Family; Visit Provider Surgery
PROC: (CPT 49591; principal; 2023-09-20 07:30)
DX: K42.9 Umbilical hernia without obstruction or gangrene (principal)
CPT/HCPCS: 49591; 96374; J2405

== ENCOUNTER 2023-09-20 16:38 | Outpatient (CLI) | payer OTHER, SELFPAY ==
[2023-10-03 08:39] LABS: HSV 2 IgG, Type Spec <0.91
== END 2023-09-20 23:59 ==
LOC: LAB 16:38
PROVIDERS: PCP Internal Medicine; Visit Provider Nurse Practitioner Obstetrics & Gynecology
DX: N94.9 Unspecified condition associated with female genital organs and menstrual cycle (principal)
CPT/HCPCS: 36415; 86695; 86790

== ENCOUNTER 2023-10-01 11:03 | Outpatient (CLI) | payer OTHER, SELFPAY | END 2023-10-01 23:59 | LOC: LAB.DROPOF 11:03 | PROVIDERS: PCP Nurse Practitioner Family; Visit Provider Nurse Practitioner Family | DX: T81.42XA Infection following a procedure, deep incisional surgical site, initial encounter (principal); K46.9 Unspecified abdominal hernia without obstruction or gangrene; B96.89 Other specified bacterial agents as the cause of diseases classified elsewhere | CPT/HCPCS: 87070; 87205 ==

== ENCOUNTER 2023-10-12 09:15 | Outpatient (CLI) | payer OTHER, SELFPAY ==
[2023-10-12 10:16] LABS: 25-OH Vitamin D, Total 23.2 ng/mL (30-100)
[2023-10-12 10:31] LABS: Alanine Aminotransferase 24 U/L (12-78); Albumin Level 3.7 g/dl (3.5-5.0); Albumin/Globulin Ratio 1.2 (1.1-1.8); Alkaline Phosphatase 111 U/L (38-126); Aspartate Amino Transferase 25 U/L (14-36); Bilirubin,Total 0.6 mg/dl (0.2-1.3); Blood Urea Nitrogen 9 mg/dl (7-17); Calcium 8.8 mg/dl (8.4-10.2); Carbon Dioxide 26 mmol/L (22.0-30.0); Chloride 104 mmol/L (98-107); Cholesterol 185 mg/dl (140-200); Estimated Glomerular Filt Rate 85 ml/min (>60); GFR (African American) 103 ML/MIN (>60); Glucose 95 mg/dl (74-100); HDL Cholesterol 37 mg/dl (40-60); Sodium 136 mmol/L (136-145); Total Protein,Serum 6.7 g/dl (6.3-8.2); Triglycerides 89 mg/dl (30-150); VLDL Cholesterol 18 mg/dL (0-40)
[2023-10-12 10:42] LABS: Direct LDL Cholesterol 119.63 mg/dL (100-129)
[2023-10-12 10:48] LABS: T4 (Thyroxine) 10.1 ug/dl (5.53-11.0)
[2023-10-12 11:02] LABS: Thyroid Stimulating Hormone 2.38 uIU/mL (0.465-4.68)
[2023-10-12 11:21] LABS: Vitamin B12 256 pg/mL (239-931)
[2023-10-12 13:20] LABS: Ferritin 6.69 ng/ml (6.24-137)
[2023-10-13 08:19] LABS: Estradiol 67.6 pg/mL (.); FSH 3.2 mIU/mL (.); LH 4.4 mIU/mL (.); Progesterone 5.2 ng/mL (.); Thyroid Peroxidase Antibodies 296 IU/mL (0-34)
[2023-10-15 16:12] LABS: Thyroglobulin Level 64.8 IU/mL (0.0-0.9)
[2023-10-21 10:39] LABS: Magnesium,RBC 4.6 mg/dL (3.7-7.0)
[2023-10-23 15:22] LABS: Free Testosterone (Direct) 0.5 pg/mL (0.0-4.2)
[2023-10-26 10:26] LABS: Triiodothyronine (T3) Reverse 17.2
== END 2023-10-12 23:59 ==
LOC: LAB 10:20
PROVIDERS: PCP Nurse Practitioner Family; Visit Provider Nurse Practitioner Family
DX: R79.89 Other specified abnormal findings of blood chemistry (principal); E03.9 Hypothyroidism, unspecified; E06.3 Autoimmune thyroiditis; E28.2 Polycystic ovarian syndrome; N92.6 Irregular menstruation, unspecified; G43.909 Migraine, unspecified, not intractable, without status migrainosus; D50.9 Iron deficiency anemia, unspecified; E55.9 Vitamin D deficiency, unspecified
CPT/HCPCS: 36415; 80053; 80061; 82306; 82607; 82670; 82728; 83001; 83002; 83735; 84144; 84436; 84443; 84481; 84482; 86376; 86800

== ENCOUNTER 2023-10-29 10:24 | Outpatient (CLI) | payer OTHER, SELFPAY ==
[2023-10-29 10:25] LABS: Adenovirus,PCR Not Detected (NotDetected); Coronavirus 19, PCR Not Detected (NotDetected); Coronavirus 229E Not Detected (NotDetected); Coronavirus NL63 Not Detected (NotDetected); Coronavirus OC43 Not Detected (NotDetected); Coronovirus HKU1,PCR Not Detected (NotDetected); Human Metapneumovirus Not Detected (NotDetected); Influenza A, PCR Not Detected (NotDetected); Influenza AH1, 2009 Not Detected (NotDetected); Influenza AH1, PCR Not Detected (NotDetected); Influenza B, PCR Not Detected (NotDetected); Parainfluenza 1, PCR Not Detected (NotDetected); Parainfluenza 2, PCR Not Detected (NotDetected); Parainfluenza 3, PCR Not Detected (NotDetected); Parainfluenza 4, PCR Not Detected (NotDetected); Respiratory Syncytial Virus Not Detected (NotDetected); Rhinovirus/Enterovirus Not Detected (NotDetected)
[2023-10-29 14:13] LABS: Influenza AH3,PCR Detected (NotDetected)
== END 2023-10-29 23:59 ==
LOC: LAB.DROPOF 10:24
PROVIDERS: PCP Nurse Practitioner Family; Visit Provider Nurse Practitioner Family
DX: R50.9 Fever, unspecified (principal); R68.89 Other general symptoms and signs; J09.X2 Influenza due to identified novel influenza A virus with other respiratory manifestations
CPT/HCPCS: 87632; 87635

== ENCOUNTER 2023-11-21 08:53 | Outpatient (CLI) | payer OTHER, SELFPAY | END 2023-11-21 23:59 | PROVIDERS: PCP Nurse Practitioner Family; Visit Provider Nurse Practitioner Family | DX: I48.91 Unspecified atrial fibrillation (principal) | CPT/HCPCS: 93225 ==

== ENCOUNTER 2023-12-07 13:31 | Outpatient (CLI) | payer OTHER, SELFPAY ==
--- NOTE | 2023-12-07 13:32 | CA_ITS ---
APPROVED REPORT EXAM: Comprehensive 2D, Doppler, and color-flow Echocardiogram Special Needs Child Caregiver: Mildred Aguila RT(R) Ht: 5 ft 3 in Wt: 295lbs BSA: 2.28 BP: 123/92 mmHg Indications: Afib, edema, SOB. palpitations, obesity, tachycardia 2D Dimensions LVEF (Arellano's) 52.90 % F: 54 - 74 LV Volume 120.60 mL F: 46 - 106 LV Volume Index 52.9 mL/m2 F: 29 - 61 LA Volume 30.20 mL LA Volume Index 13.25 mL/m2 (M/F) 16-34 EF AP4 55.30 % EF AP2 50.1 % EF BP 52.9 % GL Strain -15.3 % M-Mode Dimensions RVDd 3.02 cm (0.9-2.6) LA Diam 3.41 cm (1.9-4.0) LVDd 4.89 cm (3.5-5.7) LVDs 3.57 cm (3.5-5.7) IVSd 0.68 cm (0.6-1.1) PWd 1.06 cm (0.6-1.1) EF (Teich) 52.50% FS 27.00% EDV (Teich) 112.30 mL ESV (Teich) 53.30 mL LV Diastology E Decel Time 177 (160-240 msec) E/A Ratio 1.2 Mitral Valve MV E Max João. 101.0 (40-130 cm/s) MV A Velocity 84.0 (40-130 cm/s) E/A Ratio 1.20 MV PHT 52.0 ms Left Ventricle The left ventricle is normal size. The left ventricular systolic function is normal. The left ventricular ejection fraction is within the normal range. There is normal left ventricular wall thickness. There is normal LV segmental wall motion. The left ventricular diastolic function is normal. LVEF is 55%. Right Ventricle The right ventricle is normal size. The right ventricular systolic function is normal. Atria The left atrium size is normal. The right atrium size is normal. There is no Doppler evidence of interatrial shunt. Aortic Valve The aortic valve opens well. There is no aortic valvular stenosis. No aortic regurgitation is present. Mitral Valve The mitral valve is normal in structure. No evidence of mitral valve stenosis. Trace mitral valve regurgitation. Tricuspid Valve The tricuspid valve leaflets are thin and pliable. Trace tricuspid regurgitation. There is insufficient TR jet to estimate RVSP. Pulmonic Valve The pulmonary valve is normal in structure. Trace pulmonic regurgitation. Great Vessels The aortic root is normal in size. The ascending aorta is normal in size. IVC is normal in size and collapses >50% with inspiration. Pericardium There is no pericardial effusion. Other Information Study Quality: Fair Conclusion Normal biventricular systolic function. No significant valvular stenosis or regurgitation. Electronically signed by : Karen Cotton MD 12/10/2023 22:56:37
== END 2023-12-07 23:59 ==
LOC: RT 13:32
PROVIDERS: PCP Nurse Practitioner Family; Visit Provider Internal Medicine
DX: R00.2 Palpitations (principal); R00.0 Tachycardia, unspecified; R06.00 Dyspnea, unspecified
CPT/HCPCS: 93306

== ENCOUNTER 2024-02-14 15:07 | Outpatient (CLI) | payer OTHER, SELFPAY | END 2024-02-14 23:59 | disposition home or self-care (01) | LOC: RT 15:07 | PROVIDERS: PCP Nurse Practitioner Family; Visit Provider Nurse Practitioner | DX: R00.0 Tachycardia, unspecified (principal); R00.2 Palpitations | CPT/HCPCS: 93270 ==

== ENCOUNTER 2024-04-17 15:02 | Outpatient (CLI) | payer OTHER, SELFPAY ==
[2024-04-17 11:18] LABS: T4 (Thyroxine) 10.6 ug/dl (5.53-11.0)
[2024-04-17 11:31] LABS: Thyroid Stimulating Hormone 2.73 uIU/mL (0.465-4.68)
[2024-04-18 05:09] LABS: Insulin Level Total 23.6 uIU/mL (2.6-24.9)
[2024-04-18 07:49] LABS: Triiodothyronine (T3) Free 2.9 pg/mL (2.0-4.4)
[2024-04-18 08:30] LABS: C-Peptide 3.7 ng/mL (1.1-4.4); Estradiol 46.4 pg/mL (.); Progesterone 0.1 ng/mL (.)
[2024-04-23 09:43] LABS: Free Testosterone (Direct) 1.4 pg/mL (0.0-4.2); Testosterone, Total, LC/MS 28.6 ng/dL (10.0-55.0)
[2024-04-23 09:43] LABS: Thyroid Peroxidase Antibodies 183 IU/mL (0-34)
[2024-04-23 15:21] LABS: Thyroglobulin Level 27.6 IU/mL (0.0-0.9)
== END 2024-04-17 23:59 | disposition home or self-care (01) ==
LOC: LAB.DROPOF 15:02
PROVIDERS: PCP Nurse Practitioner Family; Visit Provider Nurse Practitioner Family
DX: E28.2 Polycystic ovarian syndrome (principal); E06.3 Autoimmune thyroiditis; E03.9 Hypothyroidism, unspecified
CPT/HCPCS: 82533; 82670; 83525; 84144; 84436; 84443; 84481; 84681; 86376; 86800

== ENCOUNTER 2024-05-05 14:51 | Outpatient (CLI) | payer OTHER, SELFPAY ==
[2024-05-05 13:47] LABS: Microscopic, Urine URINE MICROSCOPIC (MICROSCOPIC)
[2024-05-05 14:33] LABS: Appearance,Urine SL CLOUDY (Clear); Blood, Urine 2+ (Negative); Color,Urine YELLOW (Yellow); Glucose,Urine (UA) Negative (Negative); Ketones,Urine TRACE (Negative); Leukocyte Esterase,Urine Negative (Negative); Nitrate,Urine Negative (Negative); Protein,Urine TRACE (Negative); Specific Gravity, Urine >= 1.030 (1.005-1.030); Urobilinogen,Urine 0.2 EU/dl (0.2)
[2024-05-05 14:37] LABS: Albumin Level 4.2 g/dl (3.5-5.0); Chloride 103 mmol/L (98-107)
[2024-05-05 14:38] LABS: Potassium 4.8 mmoL/L (3.5-5.1); Sodium 137 mmol/L (136-145)
[2024-05-05 14:40] LABS: Amylase 47 U/L (30-110); Blood Urea Nitrogen 11 mg/dl (7-17); Estimated Glomerular Filt Rate 74 ml/min (>60); GFR (African American) 90 ML/MIN (>60)
[2024-05-05 14:41] LABS: Alanine Aminotransferase 27 U/L (12-78); Albumin/Globulin Ratio 1.3 (1.1-1.8); Alkaline Phosphatase 122 U/L (38-126); Anion Gap 13.8 mEq/L (5-15); Aspartate Amino Transferase 33 U/L (14-36); Bilirubin,Total 0.6 mg/dl (0.2-1.3); Calcium 8.8 mg/dl (8.4-10.2); Carbon Dioxide 25 mmol/L (22.0-30.0); Globulin 3.2 g/dL (1.3-3.2); Glucose 76 mg/dl (74-100); Lipase 40 U/L (23-300); Total Protein,Serum 7.4 g/dl (6.3-8.2)
[2024-05-05 14:55] LABS: Bilirubin,Urine 1+ (Negative)
[2024-05-05 14:56] LABS: Bacteria,Urine 1+ /lpf; WBC,Urine Occasional #/hpf (0-3); Yeast,Urine Occasional /lpf
[2024-05-06 10:20] LABS: Basophils # 0.1 K/mm3 (0-0.2); Basophils % 0.5 % (0.1-2.0); Eosinophils # 0.1 K/mm3 (0.0-0.4); Eosinophils % 1.1 % (0.1-12.0); Lymphocytes % 19.5 % (10-50); Mean Corpuscular HGB Conc 30.1 g/dL (31.8-35.4); Mean Corpuscular Hemoglobin 20.6 pg (27.0-31.2); Mean Corpuscular Volume 68.5 fl (81-99); Mean Platelet Volume 7.6 fl (7.4-10.4); Monocytes # 0.4 K/mm3 (0.1-1.0); Monocytes % 4.4 % (1.7-9.3); Neutrophils # 7.5 K/mm3 (1.8-7.8); Neutrophils % 74.5 % (37.0-80.0); Platelet Count 374 K/mm3 (142-424); Red Blood Count 4.83 M/mm3 (4.20-5.40); Red Cell Distribution Width 16.7 % (11.5-17.5); White Blood Count 10.1 K/mm3 (4.8-10.8)
[2024-05-06 12:08] LABS: HCG Qualitative, Serum Negative (Negative)
== END 2024-05-05 23:59 | disposition home or self-care (01) ==
LOC: LAB.DROPOF 14:51
PROVIDERS: PCP Nurse Practitioner Family; Visit Provider Nurse Practitioner Family
DX: R11.0 Nausea (principal); R50.9 Fever, unspecified
CPT/HCPCS: 80053; 81001; 82150; 83690; 84703; 85025; 87086

== ENCOUNTER 2024-06-18 06:45 | Day surgery (SDC) | payer OTHER, SELFPAY ==
[2024-06-18 06:50] VITALS: BMI 56.6
[2024-06-18 07:39] VITALS: BP 132/81; PULSE 71; RESP 20; O2SAT 98
[2024-06-18] MEDS: CEFAZOLIN SODIUM 1 GM in 0.9 % SODIUM CHLORIDE 50 ML IV (08:05)
[2024-06-18] MEDS: LIDOCAINE 2% W/EPI 1:100,000 20ML VIAL 20 ML SQ (08:07)
--- NOTE | 2024-06-18 08:09 | SUR.PREOP ---
Called Lazarus from pharmacy to get okay with using ancef r/t her latex allergy which the mar was flagging and requiring an override , gave okay to give
[2024-06-18 08:22] VITALS: BP 133/74; PULSE 71; RESP 20; O2SAT 100
--- NOTE | 2024-06-18 10:06 | EXP.LOOP ---
[facility] Loop Recorder Date: 06/18/24 Time: 08:15 Procedure Performed:: Implantation of loop recorder Indication:: Near syncope, palpitations Technique:: Patient was brought to the cardiac Workforce Development Specialist. After informed consent obtained, 1% lidocaine with epinephrine was used to anesthetize the site along the left anterior aspect of the chest near the sternal border. Using the preformed scalpel, an incision was made and using the supplied preloaded apparatus, the loop recorder was placed subcutaneously without difficulty. Following the deployment of the loop recorder interrogation of the device was performed to ensure appropriate voltage was being detected. Once this was verified, Steri-Strips were placed over the incision and the patient was prepped to discharge home. Patient tolerated the procedure well with minimal discomfort. Impression:: Successful implantation of loop recorder Serial Number:: [id number] EL plus Model number [id number] Serial #[id number] Plan:: Routine postop care
== END 2024-06-18 08:57 | disposition home or self-care (01) ==
PROVIDERS: PCP Nurse Practitioner Family; Visit Provider Internal Medicine
DX: R55 Syncope and collapse (principal); Z45.09 Encounter for adjustment and management of other cardiac device; Z79.899 Other long term (current) drug therapy; I49.1 Atrial premature depolarization
CPT/HCPCS: 33285; C1764; J0690

== ENCOUNTER 2024-07-23 09:09 | Outpatient (RCR) | payer OTHER, SELFPAY | END 2024-07-23 23:59 | disposition home or self-care (01) | LOC: PT 09:09 | PROVIDERS: Visit Provider Nurse Practitioner Family | DX: M79.671 Pain in right foot (principal); S93.691A Other sprain of right foot, initial encounter | CPT/HCPCS: 97760 ==

== ENCOUNTER 2024-07-28 16:47 | Outpatient (CLI) | payer OTHER, SELFPAY ==
--- NOTE | 2024-07-28 16:50 | XR_ITS ---
PROCEDURE INFORMATION: Exam: XR Left Foot Complete; Alignment Exam date and time: 07/28/2024 4:50 PM Age: 28 years old Clinical indication: Pain; Foot; Left; Additional info: Foot pain TECHNIQUE: Imaging protocol: Radiologic exam of the left foot. Views: 3 or more views. COMPARISON: No relevant prior studies available. FINDINGS: Bones/joints: Osseous structures are intact. No fracture or malalignment. Visualized joint surfaces are preserved. Small plantar spur arising the calcaneus. Soft tissues: Unremarkable. IMPRESSION: Small plantar spur otherwise negative exam. No acute bony abnormalities.
--- NOTE | 2024-07-28 16:50 | XR_ITS ---
PROCEDURE INFORMATION: Exam: XR Right Foot Complete; Alignment Exam date and time: 07/28/2024 4:50 PM Age: 28 years old Clinical indication: Pain; Foot; Right; Additional info: Foot pain TECHNIQUE: Imaging protocol: Radiologic exam of the right foot. Views: 3 or more views. COMPARISON: No relevant prior studies available. FINDINGS: Bones/joints: Osseous structures are intact. No fracture or malalignment. Visualized joint surfaces are preserved. Small plantar spur arising the calcaneus. Soft tissues: Unremarkable. IMPRESSION: Small plantar spur otherwise negative exam. No acute bony abnormalities.
== END 2024-07-28 23:59 | disposition home or self-care (01) ==
LOC: RAD 16:47
PROVIDERS: PCP Internal Medicine; Visit Provider Podiatrist
DX: M79.671 Pain in right foot (principal); M79.672 Pain in left foot
CPT/HCPCS: 73630

== ENCOUNTER 2024-08-28 10:36 | Outpatient (CLI) | payer OTHER, SELFPAY ==
--- NOTE | 2024-08-28 10:36 | CT_ITS ---
FINAL REPORT TECHNIQUE: Axial images with the right foot was obtained with and without contrast. Sagittal and coronal reformatted images were obtained and reviewed. This study was performed with techniques to keep radiation doses as low as reasonably achievable, (ALARA). Individualized dose reduction techniques using automated exposure control or adjustment of mA and/or kV according to the patient's size were employed. CLINICAL HISTORY: foot pain COMPARISON: 06/19/2022 FINDINGS: No fracture is identified. There is a plantar calcaneal spur. There is subcutaneous edema at the plantar aspect of the foot. No mass or fluid collection is identified. IMPRESSION: Subcutaneous edema at the plantar aspect of the foot. Reviewed, Interpreted and Dictated by Basilio Pepe III, MD Transcribed by Zoë Bullock Authenticated and . [facility]
[2024-08-28] MEDS: IOPAMIDOL-370 (76%);100ML BOTTLE 75 ML IV (10:57)
[2024-08-28] MEDS: SODIUM CHLORIDE 0.9% 10ML SYR (RAD ONLY) 10 ML IV (10:57)
== END 2024-08-28 23:59 | disposition home or self-care (01) ==
LOC: RAD 10:36
PROVIDERS: PCP Internal Medicine; Visit Provider Nurse Practitioner
DX: R60.0 Localized edema (principal); M79.671 Pain in right foot
CPT/HCPCS: 73702; Q9967

== ENCOUNTER 2024-12-31 08:00 | Outpatient (CLI) | payer OTHER, SELFPAY ==
[2024-12-31 08:17] LABS: Basophils # 0.1 K/mm3 (0-0.2); Basophils % 0.9 % (0.1-2.0); Eosinophils # 0.1 K/mm3 (0.0-0.4); Eosinophils % 1.5 % (0.1-12.0); Hematocrit 33.8 % (37.0-47.0); Hemoglobin 10.1 g/dL (12.2-16.2); Lymphocytes # 1.3 K/mm3 (0.7-4.5); Mean Corpuscular HGB Conc 29.9 g/dL (31.8-35.4); Mean Corpuscular Hemoglobin 20.8 pg (27.0-31.2); Mean Corpuscular Volume 69.5 fl (81-99); Mean Platelet Volume 9.5 fl (7.4-10.4); Monocytes # 0.4 K/mm3 (0.1-1.0); Neutrophils % 72.2 % (37.0-80.0); Nucleated Red Blood Cells # 0 10^3/uL; Nucleated Red Blood Cells % 0 %; Platelet Count 349 K/mm3 (142-424); Red Blood Count 4.86 M/mm3 (4.20-5.40); Red Cell Distribution Width 15.9 % (11.5-17.5); Red Cell Distribution Width-SD 39.5 fL; White Blood Count 6.9 K/mm3 (4.8-10.8)
[2024-12-31 08:49] LABS: Albumin Level 3.9 g/dl (3.5-5.0); Chloride 104 mmol/L (98-107); Sodium 139 mmol/L (136-145)
[2024-12-31 08:50] LABS: Potassium 4.3 mmoL/L (3.5-5.1)
[2024-12-31 08:52] LABS: Alanine Aminotransferase 18 U/L (12-78); Albumin/Globulin Ratio 1.2 (1.1-1.8); Anion Gap 14.3 mEq/L (5-15); Aspartate Amino Transferase 21 U/L (14-36); Blood Urea Nitrogen 8 mg/dl (7-17); Carbon Dioxide 25 mmol/L (22.0-30.0); Cholesterol 186 mg/dl (140-200); Estimated Glomerular Filt Rate 65 ml/min (>60); GFR (African American) 79 ML/MIN (>60); Globulin 3.2 g/dL (1.3-3.2); Total Protein,Serum 7.1 g/dl (6.3-8.2); Triglycerides 118 mg/dl (30-150); VLDL Cholesterol 24 mg/dL (0-40)
[2024-12-31 08:53] LABS: Alkaline Phosphatase 100 U/L (38-126); Bilirubin,Total 0.7 mg/dl (0.2-1.3); Calcium 9.1 mg/dl (8.4-10.2); Glucose 96 mg/dl (74-100); HDL Cholesterol 46 mg/dl (40-60); Magnesium 1.7 mg/dl (1.6-2.3)
[2024-12-31 09:04] LABS: Direct LDL Cholesterol 109.08 mg/dL (100-129)
[2024-12-31 09:06] LABS: Free T4 (Free Thyroxine) 1.48 ng/dl (0.78-2.19)
[2024-12-31 09:21] LABS: T4 (Thyroxine) 11.7 ug/dl (5.53-11.0)
[2024-12-31 09:34] LABS: Thyroid Stimulating Hormone 1.66 uIU/mL (0.465-4.68)
[2024-12-31 09:38] LABS: Ferritin 4.82 ng/ml (6.24-137)
[2024-12-31 09:59] LABS: 25-OH Vitamin D, Total 33.1 ng/mL (30-100)
[2024-12-31 11:06] LABS: Vitamin B12 260 pg/mL (239-931)
[2025-01-01 08:41] LABS: Progesterone 0.2 ng/mL (.); Thyroid Peroxidase Antibodies 423 IU/mL (0-34); Triiodothyronine (T3) Free 2.9 pg/mL (2.0-4.4)
[2025-01-01 14:12] LABS: Adrenocorticotropic Hormone 24.6 pg/mL (7.2-63.3)
[2025-01-01 15:11] LABS: Cortisol,AM 13.5 ug/dL (6.2-19.4)
[2025-01-01 16:21] LABS: Thyroglobulin Level 110.6 IU/mL (0.0-0.9)
[2025-01-03 21:28] LABS: Vitamin B6 4.4 ug/L (3.4-65.2)
[2025-01-05 10:10] LABS: Free Testosterone (Direct) 1.2 pg/mL (0.0-4.2); Testosterone, Total, LC/MS 24.6 ng/dL (10.0-55.0)
[2025-01-05 15:12] LABS: Vitamin B1 95.5 nmol/L (66.5-200.0)
== END 2024-12-31 23:59 | disposition home or self-care (01) ==
LOC: LAB 08:01
PROVIDERS: PCP Nurse Practitioner Family; Visit Provider Nurse Practitioner Family
DX: E06.3 Autoimmune thyroiditis (principal); R79.89 Other specified abnormal findings of blood chemistry; R00.2 Palpitations; F33.1 Major depressive disorder, recurrent, moderate; E28.2 Polycystic ovarian syndrome; D50.9 Iron deficiency anemia, unspecified
CPT/HCPCS: 36415; 80053; 80061; 82024; 82306; 82533; 82607; 82670; 82728; 83735; 84144; 84207; 84402; 84403; 84425; 84436; 84439; 84443; 84481; 85025; 86376; 86800

== ENCOUNTER 2025-07-01 08:37 | Outpatient (CLI) | payer OTHER, SELFPAY ==
--- OUTSIDE RECORDS SUMMARY | 2024-12-20 17:30 | XMS_ITS ---
Author Organization [email or web address] [facility] BHARATH D [place] Address [address] [place] [address] Care Team Providers Care Teacher Name Role Phone Luc Haynes Primary Care Provider Migration, Provider Unavailable Unavailable Allergies Allergen (clinical drug ingredient) Drug/Non Drug Allergy documented on EMR Reaction Allergy Type Onset Date Status Latex LATEX (uncoded) Unknown Allergy Acti ve Milk MILK (uncoded) Unknown Allergy Activ e hydrocodone HYDROcodone itches Drug Allergy Act augustina REASON FOR VISIT [facility] Conversion Encounter Medications Medication SIG (Take, Route, Frequency, Duration) Notes Start Date End Date Status Ondansetron HCl 4 MG 1 tab(s) orally every 6 hours as needed for nausea; Duration: 3 days 08/15/2022 Active Euthyrox 100 MCG (0.1 MG) TAKE 1 TABLET ONCE DAILY; Duration: 30 DAYS *Please review and pick correct strength-formulati on from Circlefivespan options. If intended option is not shown, discontinue and re-order from Quick Search* Active MiraLax - 17 G ORALLY ONCE A DAY; Duration: 1 DAY(S) *Please review and pick correct strength-formulati on from Circlefivespan options. If intended option is not shown, discontinue and re-order from Quick Search* Active Vitamin D (Ergocalciferol) 1.25 MG (52456 UT) 1 cap(s) orally once a week; Duration: 30 day(s) Active Azelastine HCl 137 MCG/SPRAY 2 spray(s) intranasally 2 times a day; Duration: 30 day(s) Active Xhance 93 MCG/INH 1 SPRAY(S) IN EACH NOSTRIL 2 TIMES A DAY *Please review and pick correct strength-formulati on from Circlefivespan options. If intended option is not shown, discontinue and re-order from Quick Search* Active Vitamin C 250 MG 1 tab(s) orally once a day; Duration: 30 day(s) Active Centrum Ultra Womens *Please rev iew and pick correct strength-formulati on from Circlefivespan options. If intended option is not shown, discontinue and re-order from Quick Search* Active Famotidine 40 MG 1 tab(s) orally once a day (at bedtime); Duration: 90 days Active Venlafaxine HCl ER 150 MG 1 cap(s) orally once a day; Duration: 90 days Active Biotin 5 MG 1 tab(s) orally once a day Active Pantoprazole Sodium 40 MG 1 tab(s) orally once a day; Duration: 90 days Active Xyzal Allergy 24HR 5 MG 1 tab(s) orally once a day (in the evening) Active Encounters Encounter Location Date Provider Diagnosis [facility] [place] [address] [place] [address] 12/20/2024 Provider Migration Nausea R11.0 Assessments Encounter Date Diagnosis (ICD Code) Assessment Notes Treatment Notes Treatment Clinical Notes Section Notes 12/20/2024 Nausea (ICD-10 - R11.0) Plan Of Treatment Medication Medication Name Sig Start Date Stop Date Notes Ondansetron HCl 4 MG 1 tab(s) orally every 6 hours as needed for nausea; Duration: 3 days 08/15/2022 Euthyrox 100 MCG (0.1 MG) TAKE 1 TABLET ONCE DAILY; Duration: 30 DAYS *Please review and pick correct strength-formulation from [employer]ambo[employer] options. If intended option is not shown, discontinue and re-order from Quick Search* Famotidine 40 MG 1 tab(s) orally once a day (at bedtime); Duration: 90 days Venlafaxine HCl ER 150 MG 1 cap(s) orally once a day; Duration: 90 days Pantoprazole Sodium 40 MG 1 tab(s) orally once a day; Duration: 90 days Progress Notes * Kaleigh TORRES DDOB: [birth year] (29 yo F)Acc No.[id number]:12/20/2024 Patient: Kaleigh GRAFF Provider: Lisa Doss :1995 A ge:28 Y S ex:Female Date:12/20/2024 Address:[address], [place], [id number] Pcp:Luc Haynes Subjective: * Chief Complaints: * [facility] . [facility] * Medical History: * Medications: T aking Xyzal Allergy 24HR 5 MG Tablet 1 tab(s) orally once a day (in the evening) , Taking Biotin 5 MG Tablet Disintegrating 1 tab(s) orally once a day , Taking Centrum Ultra Womens , Notes to Pharmacist: *Please review and pick correct strength-formulation from Circlefivespan options. If intended option is not shown, discontinue and re-order from Quick Search*, Taking Vitamin C 250 MG Tablet 1 tab(s) orally once a day , Taking Xhance 93 MCG/INH SPRAY 1 SPRAY(S) IN EACH NOSTRIL 2 TIMES A DAY , Notes to Pharmacist: *Please review and pick correct strength- formulation from Circlefivespan options. If intended option is not shown, discontinue and re-order from Quick Search*, Taking Azelastine HCl 137 MCG/SPRAY Solution 2 spray(s) intranasally 2 times a day , Taking Vitamin D (Ergocalciferol) 1.25 MG (25516 UT) Capsule 1 cap(s) orally once a week , Taking MiraLax - POWDER FOR RECONSTITUTION 17 G ORALLY ONCE A DAY , Notes to Pharmacist: *Please review and pick correct strength-formulation from Circlefivespan options. If intended option is not shown, discontinue and re-order from Quick Search* * Allergies: M ILK, LATEX, HYDROcodone: itches. Objective: * Vitals: Assessment: * Assessment: 1. N ausea - R11.0 Plan: * Treatment: 2. O thers Refill Pantoprazole Sodium Tablet Delayed Release, 40 MG, 1 tab(s), orally, once a day, 90 days, 90, Refills 0; R efill Venlafaxine HCl ER Capsule Extended Release 24 Hour, 150 MG, 1 cap(s), orally, once a day, 90 days, 90, Refills 0; R efill Famotidine Tablet, 40 MG, 1 tab(s), orally, once a day (at bedtime), 90 days, 90, Refills 0; R efill Euthyrox TABLET, 100 MCG (0.1 MG), TAKE 1 TABLET ONCE DAILY, 30 DAYS, 30, Refills 0, Notes to Pharmacist: *Please review and pick correct strength-formulation from Medispan options. If intended option is not shown, discontinue and re-order from Quick Search*. * * Electronic signature of Prov ider Migration on 07/02/2025 at 09:33 AM EDT Sign off status: Pending * Provider: Lisa quintanilla Migration Date: 0 12/20/2024 Generated for Laura odom/Edouard/Abigail on: 1 09:33 AM EDT
[2025-07-01 09:11] LABS: Hematocrit 33.4 % (37.0-47.0); Hemoglobin 10.1 g/dL (12.2-16.2); Immature Granulocytes % 0.6 %; Mean Corpuscular HGB Conc 30.2 g/dL (31.8-35.4); Mean Corpuscular Hemoglobin 21.0 pg (27.0-31.2); Mean Corpuscular Volume 69.4 fl (81-99); Nucleated Red Blood Cells % 0 %; Platelet Count 317 K/mm3 (142-424); Red Blood Count 4.81 M/mm3 (4.20-5.40); Red Cell Distribution Width-SD 37.6 fL; White Blood Count 6.7 K/mm3 (4.8-10.8)
[2025-07-01 10:43] LABS: 25-OH Vitamin D, Total 27.8 ng/mL (30-100)
[2025-07-01 15:55] LABS: Iron 43 ug/dL (37-170)
[2025-07-01 16:06] LABS: Total Iron Binding Capacity 415 ug/dL (265-497)
[2025-07-01 16:14] LABS: T4 (Thyroxine) 10.4 ug/dl (5.53-11.0)
[2025-07-01 16:28] LABS: Thyroid Stimulating Hormone 2.91 uIU/mL (0.465-4.68)
[2025-07-01 16:32] LABS: Ferritin 6.38 ng/ml (6.24-137)
[2025-07-01 16:53] LABS: C-Reactive Protein 14.3 mg/L (0-4)
[2025-07-01 16:57] LABS: Folate 7.80 ng/mL
[2025-07-01 17:38] LABS: Vitamin B12 276 pg/mL (239-931)
[2025-07-02 08:14] LABS: Cytomegalovirus (CMV) Ab, IgG <0.60 U/mL (0.00-0.59); Cytomegalovirus (CMV) Ab, IgM <30.0 AU/mL (0.0-29.9); Triiodothyronine (T3) Free 2.9 pg/mL (2.0-4.4)
--- OUTSIDE RECORDS SUMMARY | 2025-07-02 09:32 | XMS_ITS | Patient Health Record ---
Author Organization [facility] D [place] Address [address] [place] [address] Care Team Providers Care Test Analyst Name Role Phone Luc Haynes Primary Care Provider [phone] Migration, Provider Unavailable Unavailable Allergies Allergen (clinical drug ingredient) Drug/Non Drug Allergy documented on EMR Reaction Allergy Type Onset Date Status Latex LATEX (uncoded) Unknown Allergy Acti ve Milk MILK (uncoded) Unknown Allergy Activ e hydrocodone HYDROcodone itches Drug Allergy Act augustina Medications Medication SIG (Take, Route, Frequency, Duration) Notes Start Date End Date Status Xhance 93 MCG/INH 1 SPRAY(S) IN EACH NOSTRIL 2 TIMES A DAY *Please review and pick correct strength-formulati on from Medispan options. If intended option is not shown, discontinue and re-order from Quick Search* Active Vitamin C 250 MG 1 tab(s) orally once a day; Duration: 30 day(s) Active Centrum Ultra Womens *Please rev iew and pick correct strength-formulati on from Medispan options. If intended option is not shown, discontinue and re-order from Quick Search* Active Biotin 5 MG 1 tab(s) orally once a day Active Ondansetron HCl 4 MG 1 tab(s) orally every 6 hours as needed for nausea; Duration: 3 days 08/15/2022 Active Famotidine 40 MG 1 tab(s) orally once a day (at bedtime); Duration: 90 days Active Venlafaxine HCl ER 150 MG 1 cap(s) orally once a day; Duration: 90 days Active Euthyrox 100 MCG (0.1 MG) TAKE 1 TABLET ONCE DAILY; Duration: 30 DAYS *Please review and pick correct strength-formulati on from [employer] options. If intended option is not shown, discontinue and re-order from Quick Search* Active MiraLax - 17 G ORALLY ONCE A DAY; Duration: 1 DAY(S) *Please review and pick correct strength-formulati on from [employer] options. If intended option is not shown, discontinue and re-order from Quick Search* Active Vitamin D (Ergocalciferol) 1.25 MG (66366 UT) 1 cap(s) orally once a week; Duration: 30 day(s) Active Azelastine HCl 137 MCG/SPRAY 2 spray(s) intranasally 2 times a day; Duration: 30 day(s) Active Pantoprazole Sodium 40 MG 1 tab(s) orally once a day; Duration: 90 days Active Xyzal Allergy 24HR 5 MG 1 tab(s) orally once a day (in the evening) Active Immunizations Vaccine Route Administration Date Status Comme nts HPV4 (Gardasil Vaccine Dose 3-VFC) IM Intramuscular 03/13/2011 Administered HPV4 (Gardasil Vaccine Dose 2-VFC) IM Intramuscular 11/07/2010 Administered Gardisil (HPV4) VFC IM Intramuscular 08/18/2010 Administer ed Fluvirin--Influenza vaccine 3+ year IM Intramuscular 07/20/2010 Administered Problems Problem Type SNOMED Code ICD Code Onset Dates Problem Status W/U Status Risk Notes Problem Headache (63719033) Headache (784.0) Active con firmed Problem Knee pain (8879857702) Knee Pain (719.46) Active confirmed Problem Intractable migraine without aura (146102549) Migraine without aura, with intractable migraine, with status migrainosus (346.13) Active confirmed Problem Acquired hypothyroidism (044935896) Acquired hypothyroidism (E03.9) Active confirmed Problem Mood disorder (41594146) Mood disorder (F39) Active confirmed Problem Menometrorrhagia (334641331) Menometrorrhagia (N92.1) Active confirmed Problem 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 Problem COVID-19 (384368749) COVID-19 (U07.1) Active confirmed Problem Gastroesophageal reflux disease (064055817) Gastroesophageal reflux disease, unspecified whether esophagitis present (K21.9) Active confirmed Encounters Encounter Location Date Provider [facility] [place] [address] [place] [address] 12/20/2024 Provider Migration Nausea R11.0 Assessments Encounter Date Diagnosis (ICD Code) Assessment Notes Treatment Notes Treatment Clinical Notes Section Notes 12/20/2024 Nausea (ICD-10 - R11.0) Plan Of Treatment Pending Test Test Name Order Date X ray : Knee, Right 05/26/2009 Physical Therapy 04/14/2009 Physical Therapy 05/25/2008 Physical Therapy 05/27/2008 H-CBC with AUTO DIFF 09/21/2011 H-CBC with AUTO DIFF 05/18/2011 H-CBC with AUTO DIFF 07/04/2010 H-VITAMIN B12 [...] Date Coverage End Date [employer] [address] [address] [place] [address] [id number] Kaleigh Jackson Self - patient is the insured Medical (General) History Medical History History ICD Code ADD migraine headaches Hypothyroidism endometriosis Pilondial cyst anxiety / depression Surgical History Surgery Date(Month/Year) tonsillectomy 2004 Bilateral ear tubes appendix removed 2011 Lt knee 2013
--- OUTSIDE RECORDS SUMMARY | 2025-07-02 09:32 | XMS_ITS | Encounter Summary ---
Author Organization [employer] ([place], [place], [place], [place]) Address [address] [place] [address] Care Team Providers Care Therapy Site Coordinator Name Role Phone Benny Varela MD Primary Care Provider + Encounter Details Date Type Department Care Team (Late st Contact Info) Description 12/06/[address] [facility] [place] [address] ProviderMaria Elena MD [address] [place] [address] [phone] Social History Tobacco Use Types Packs/Day Years Used Date Smoking Tobacco: Never Assessed Comments Unknown Sex and Gender Information Value Date Recorded Sex Assigned at Not on file Legal Sex Female 5:38 PM CDT Gender Identity Not on file Sexual Orientation Not on file documented as of this encounter Miscellaneous Notes * Cerner Conversion Note - Historical ProviderMD - 12/06/2018 4:51 PM CDT Electronically signed by [facility] Conversion [employer] at 12/31/2022 9:38 AM CDT documented in this encounter Plan of Treatment Not on file documented as of this encounter Visit Diagnoses Not on filedocumented in this encounter Care Teams Therapy Site Coordinator Relationship Specialty Start Date End Date Benny Varela MD [address] [place] [id number] PCP - General Internal Medicine 05/28/25 documented as of this encounter
--- OUTSIDE RECORDS SUMMARY | 2025-07-02 09:32 | XMS_ITS | Clinical Summary ---
Author Organization [employer] ([place], [place], [place], [place]) Address [address] [place] [address] Care Team Providers Care Banquet Captain Name Role Phone Benny Varela MD Primary Care Provider + Encounters * This document contains information received from the source organization and may not represent a complete record from that organization. Date Type Department Care Team Description 05/13/2025 Outside Orders [facility] Scheduling [address] [place] [address] [facility], Provider Not In The System, ADHD, predominantly inattentive type (Primary Dx) from Last 3 Months Social History Tobacco Use Types Packs/Day Years Used Date Smoking Tobacco: Never Assessed Comments Unknown Sex and Gender Information Value Date Recorded Sex Assigned at Not on file Legal Sex Female 5:38 PM CDT Gender Identity Not on file Sexual Orientation Not on file Plan of Treatment Health Maintenance Due Date Last Done Comments Tobacco Cessation Counseling and Screening (12+) 2006 HIV Screening 2009 Hepatitis C Screening 2012 DTAP/TDAP/TD VACCINES (1 - Tdap) 2013 Pap Smear 12/24/2015 COVID-19 VACCINE (2023-2 5 season) 2025 Influenza Vaccine (#1) 2025 Pneumococcal Vaccine: 0-49 Years Aged Out No longer eligible based on patient's age to complete this topic Insurance [employer] Care Teams Banquet Captain Relationship Specialty Start Date End Date Benny Varela MD [address] [place] [id number] PCP - General Internal Medicine 05/28/25
--- OUTSIDE RECORDS SUMMARY | 2025-07-02 09:33 | XMS_ITS | Encounter Summary ---
Author Organization [employer] ([place], [place], [place], [place]) Address [address] [place] [address] Care Team Providers Care Collection Specialist Name Role Phone Benny Varela MD Primary Care Provider + Encounter Details Date Type Department Care Team (Late st Contact Info) Description 12/06/2018 Transcribed Document [facility] [place] Family Medicine [address] [place] [id number] ProviderMaria Elena MD [address] [place] [address] [id number] Social History Tobacco Use Types Packs/Day Years Used Date Smoking Tobacco: Never Assessed Comments Unknown Sex and Gender Information Value Date Recorded Sex Assigned at Not on file Legal Sex Female 5:38 PM CDT Gender Identity Not on file Sexual Orientation Not on file documented as of this encounter Miscellaneous Notes * Cerner Conversion Note - Maria Elena ProviderMD - 12/06/2018 4:59 PM CDT [address] [place] [address] Patient Information Name: CHYNA JENKINS Age: 22 Years Date of : 1995 Arrival Time: 12/06/2018 10:44:00 Diagnosis Ovarian cyst; Pneumonia Primary Care Physician: GLORY BROWN MD-[facility] Provider Information Primary Provider: ODESSA SALGADO Secondary Provider: CHYNA JENKINS has been given the following list of patient education materials, prescriptions and follow-up instructions: Follow-up Instructions: With: Address: When: GLORY BROWN [address] [place], [place] [id number] Business (1) Within 2 to 3 days Comments: Call for follow up appointment w pcp and 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 take abx for pneumonia until finished return to er if symptoms worsen take meds as prescribed, hope you feel better! Patient Education Materials: Ovarian Cyst An ovarian cyst is a fluid-filled sac on an ovary. The ovaries are organs that make eggs in women. Most ovarian cysts go away on their own and are not cancerous (are benign). Some cysts need treatment. Follow these instructions at home: ??? Take muqq-yym-ysrbyih and prescription medicines only as told by your doctor. ??? Do notdrive or use heavy machinery while taking prescription pain medicine. ??? Get pelvic exams and Pap tests as often as told by your doctor. ??? Return to your normal activities as told by your doctor. Ask your doctor what activities are safe for you. ??? Do notuse any products that contain nicotine or tobacco, such as cigarettes and e-cigarettes. If you need help quitting, ask your doctor. ??? Keep all follow-up visits as told by your doctor. This is important. Contact a doctor if: ??? Your periods are: ? Late. ? Irregular. ? Painful. ??? Your periods stop. ??? You have pelvic pain that does not go away. ??? You have pressure on your bladder. ??? You have trouble making your bladder empty when you pee (urinate). ??? You have pain during sex. ??? You have any of the following in your belly (abdomen): ? A feeling of fullness. ? Pressure. ? Discomfort. ? Pain that does not go away. ? Swelling. ??? You feel sick most of the time. ??? You have trouble pooping (have constipation). ??? You are not as hungry as usual (you lose your appetite). ??? You get very bad acne. ??? You start to have more hair on your body and face. ??? You are gaining weight or losing weight without changing your exercise and eating habits. ??? You think you may be . Get help right away if: ??? You have belly pain that is very bad or gets worse. ??? You cannot eat or drink without throwing up (vomiting). ??? You suddenly get a fever. ??? Your period is a lot heavier than usual. This information is not intended to replace advice given to you by your health care provider. Make sure you discuss any questions you have with your health care provider. Document Released: 02/19/2009 Document Revised: 03/23/2017 Document Reviewed: 02/04/2017 [employer] Patient Education ? 2017 [employer] Allergies: Lortab; Latex Medication Information: Prescription Display acetaminophen (Tylenol Extra Strength 500 mg oral tablet) 1 Tab, Oral, Q6H, PRN for pain, X 5 Day(s), # 24 Tab, 0 Refill(s) naproxen (naproxen 500 mg oral tablet) 1 Tab, Oral, BID, with food, X 10 Day(s), # 20 Tab, 0 Refill(s) Laboratory or Other Results This Visit (last charted value for your 12/06/2018 visit) Hematology 12/06/18 12:11:00 WBC: 5.6 K/uL -- Normal range between ( 3.9 and 10.0 ) RBC: 4.94 Million/uL -- Normal range between ( 3.93 and 5.22 ) Hct: 40.6 % -- Normal range between ( 34.1 and 44.9 ) Hgb: 13.2 Gram/dL -- Normal range between ( 11.2 and 15.7 ) Platelet Count: 256 K/uL -- Normal range between ( 163 and 369 ) MCH: 26.7 pg -- Normal range between ( 25.6 and 32.2 ) MCHC: 32.5 Gram/dL -- Normal range between ( 32.3 and 36.5 ) MCV: 82.2 fL -- Normal range between ( 79.0 and 94.8 ) Slide Review: No Eos %: 1.2 % -- Normal range between ( 1.0 and 7.0 ) [place] #: 0.50 K/uL -- Normal range between ( 0.24 and 0.82 ) Eos #: 0.07 K/uL -- Normal range between ( 0.04 and 0.54 ) [place] %: 8.8 % -- Normal range between ( 4.7 and 12.5 ) Baso %: 0.5 % -- Normal range between ( 0.0 and 1.0 ) Baso #: 0.03 K/uL -- Normal range between ( 0.01 and 0.08 ) RDW: 13.4 % -- Normal range between ( 11.6 and 14.4 ) Neut %: 62.6 % -- Normal range between ( 34.0 and 71.0 ) Neut #: 3.53 K/uL -- Normal range between ( 1.56 and 6.13 ) Lymph %: 26.4 % -- Normal range between ( 19.3 and 53.0 ) Lymph #: 1.49 K/uL -- Normal range between ( 1.18 and 3.74 ) MPV: 9.6 fL -- Normal range between ( 9.4 and 12.4 ) IG#: 0 x10(3)/uL IG%: 0 % -- Normal range between ( 0 and 1 ) Urinalysis 12/06/18 11:33:00 Urine Nitrite: Negative Urine Leukocyte Esterase: Negative Urine Appearance: Clear Urine Glucose Dipstick: Negative Urine Blood Dipstick: Negative Urine Type: U CleanCatch Urine Urobilinogen Dipstick: 0.2 EU/dL -- Normal range between ( 0.2 and 1.0 ) Urine Protein Dipstick: Negative Urine Color: Yellow Urine Ketones Dipstick: Negative Urine pH Dipstick: 7.0 -- Normal range between ( 6.0 and 8.0 ) Urine Bilirubin Dipstick: Negative mg/dL Urine Specific [place]: 1.009 -- Normal range between ( 1.005 and 1.030 ) General Chemistry 12/06/18 12:11:00 Creatinine Level: 0.66 mg/dL -- Normal range between ( 0.55 and 1.02 ) Sodium Level: 136 mmol/L -- Normal range between ( 136 and 146 ) Potassium Level: 3.9 mmol/L -- Normal range between ( 3.5 and 5.1 ) Chloride Level: 106 mmol/L -- Normal range between ( 102 and 112 ) Carbon Dioxide Level: 25 mmol/L -- Normal range between ( 21 and 32 ) Anion Gap: 9 -- Normal range between ( 9 and 20 ) Bilirubin Total: 0.3 mg/dL -- Normal range between ( 0.2 and 1.3 ) A/G Ratio: 0.8 -- Normal range between ( 1.1 and 2.5 ) ALT: 32 Units/Liter -- Normal range between ( 12 and 78 ) AST: 23 Units/Liter -- Normal range between ( 5 and 37 ) Globulin: 4.0 Gram/dL -- Normal range between ( 1.5 and 4.5 ) Alk Phos: 117 Units/Liter -- Normal range between ( 27 and 136 ) Bun/Creatinine: 9.1 -- Normal range between ( 8.0 and 20.0 ) Calcium Level: 8.5 mg/dL -- Normal range between ( 8.5 and 10.1 ) eGFR : >60 mL/min/1.73m2 eGFR NonAfrican: >60 mL/min/1.73m2 Glucose Level: 90 mg/dL -- Normal range between ( 74 and 106 ) Blood Urea Nitrogen: 6 mg/dL -- Normal range between ( 7 and 22 ) Lactic Acid Level: 1.3 mmol/L -- Normal range between ( 0.4 and 2.0 ) Protein Total: 7.4 Gram/dL -- Normal range between ( 6.4 and 8.2 ) Albumin Level: 3.4 Gram/dL -- Normal range between ( 3.4 and 5.0 ) Lipase Level: 75 Units/Liter -- Normal range between ( 73 and 393 ) Endocrinology 12/06/18 11:33:00 HCG Urine Qualitative: Negative Computed Tomography 12/06/18 13:27:47 CT Abdomen Pelvis W: CT Abdomen Pelvis W Ultrasound 12/06/18 15:50:44 US Transvaginal Non Ob: US Transvaginal Non Ob Medication Comment: Procedures: Laboratory Orders Name Status AutoDiff Completed CBCD Completed CMP Completed LACTREFL Completed LIPASE Completed UAMICIND Completed UHCG Completed Radiology Orders Name Status CT Abdomen Pelvis W Completed US Transvaginal Non Ob Completed Cardiology Orders No cardiology orders were placed. This statement is to verify that CHYNA JENKINS was seen at [facility] Emergency Department on ,12/06/2018 16:59:24. This is not a work excuse, if a work excuse was needed it will be in addition to this statement as a separate form. IMPORTANT: The examination and treatment you have received in the Emergency Department has been done to provide an appropriate evaluation and stabilizing treatment on an emergency basis only. Given the limited resources, it is not meant to be a substitute for complete medical care. The follow-up doctor you named will receive a copy of your records and all test reports. IT IS IMPORTANT THAT YOU SCHEDULE A FOLLOW-UP APPOINTMENT AND ARE RE-EVALUATED. You should report any new complaints, symptoms, or remaining problems at that time. IT IS IMPOSSIBLE FOR THE EMERGENCY DEPARTMENT TO RECOGNIZE AND TREAT ALL ELEMENTS OF INJURY OR ILLNESS IN A SINGLE VISIT. If you have been referred to a specialist physician, it means that we believe you may have a condition that requires the expertise of a specialist. KEEP IN MIND THAT THE SPECIALIST HAS HIS/HER OWN OFFICE POLICIES WHICH MAY REQUIRE PROPER INSURANCE OR PAYMENT UP FRONT BEFORE THE SPECIALIST WILL SEE YOU. It is your responsibility to call the specialist physician to make an appointment. We do not have the ability to identify specialists/physicians that work with specific insurance companies. Please be advised that all financial charges or billing practices are determined by that practice, not the hospital. If your insurance company requires that you see a specialist from their approved list, it is your responsibility to contact your insurance company to make those arrangements. It is also your responsibility to follow any other requirements of your insurance company necessary to obtain coverage for claims submitted. If you had special tests, such as EKG???s or X-rays, the interpretation of your tests given to you by the Emergency Dept. Physician is a preliminary report. Some fractures and illnesses fail to show up on preliminary tests. We will review them again within 24-48 hours. We will call you if there are any new suggestions. If your symptoms continue notify your physician. After you leave, you should follow the instructions below. In all events, you may obtain a copy of your Emergency Department visit from Medical Records. Please call to be directed to this department. We will bill your insurance; however, you are responsible today for any co-pay amounts. You will receive a separate bill for any services you may have received including: emergency, radiology, or pathology physicians. Please be sure we have an accurate contact phone number and address, should we need to call you for any reason. CIGARETTE SMOKING: The facts are clear; cigarette smoking will shorten your life. Smoking can cause many illnesses along the way. As a healthcare provider, [facility] recommends that you stop smoking. Assistance with quitting is available by contacting 9-157-UUOK-NOW. This is a free resource providing counseling, support, and referral. Or you may contact your personal physician. As part of your treatment plan, your physician may have prescribed a limited course of a controlled substance. This medication may be given to help people with moderate or severe pain or for other medical conditions, but there are risks involved with treatment. Common side effects may include nausea, constipation, drowsiness, sweating, itching, dry mouth, and rash. More serious side effects may include cognitive and motor impairment, like problems with thinking, concentrating, alertness, and movement (e.g. slowed reflexes), and driving and operating heavy machinery can be dangerous. It is important for you to talk to your physician if you have these side effects or questions. These controlled substances can produce physical dependence and be habit-forming if taken for an extended period of time, which means that the body has gotten used to them and may experience withdrawal symptoms if they are abruptly stopped. Withdrawal symptoms can include runny nose, sweating, goose bumps, diarrhea, abdominal cramping, rapid heartbeat, difficulty sleeping, and nervousness. The home medications listed are only as accurate as the information you provided. Please continue taking all of your medications prescribed by your Primary Care Provider unless specifically told to change or discontinue the medication. Please direct any questions regarding your home medications to your Primary Care Provider. YOU ARE THE MOST IMPORTANT FACTOR IN YOUR RECOVERY. ?? Follow your instructions carefully ?? Take your medicines as prescribed ?? Most important, see a provider as discussed. If you do not have a provider, we can provide a list of clinics Confidential This message and accompanying documents are covered by Electronic Communications Privacy Act 18 U.S.C. ???Sections 0939-1855,?? and contain information intended for the specified individual(s) only. This information is confidential. If you are not the intended recipient or an agent responsible for delivering it to the intended recipient, you are hereby notified that you have received the document in error and that any review, dissemination, copying, or the taking of any action based on the contents of this information is strictly prohibited. If you have received this communication in error, please notify us immediately by email, and delete the original message. 4 WAYS TO GET AHEAD OF SEPSIS SEPSIS is a MEDICAL EMERGENCY. Time matters! Infections put you and your family at risk for a life-threatening condition called sepsis. Sepsis is the body???s extreme response to an infection. It is life-threatening, and without timely treatment, sepsis can rapidly lead to tissue damage, organ failure, and . Sepsis happens when an infection you already have???in your skin, lungs, urinary tract or somewhere else???triggers a chain reaction throughout your body. 1 PREVENT INFECTIONS Take good care of chronic conditions. Talk to your doctor about getting the recommended vaccines. 2 PRACTICE GOOD HYGIENE Wash your hands frequently. Keep cuts or open sores clean and covered until they are healed. 3 KNOW THE SYMPTOMS Confusion or disorientation Shortness of breath High heart rate Fever, shivering, or feeling very cold Extreme pain or discomfort Clammy or sweaty skin 4 ACT FAST Get medical care IMMEDIATELY if you suspect sepsis or if you have an infection that???s not getting better or is getting worse. To learn more about sepsis and how to prevent infections, visit www.cdc.gov/sepsis. STROKE is an EMERGENCY Every Minute Counts ACT F.A.S.T! FACE ?? Facial droop ?? Uneven smile ARM ?? Arm numbness ?? Arm weakness SPEECH ?? Slurred speech ?? Difficulty speaking or understanding TIME ?? Call 911 and get to the hospital immediately Have the ambulance go to the nearest stroke center. STROKE Risk Factors High blood pressure High cholesterol Heart Disease Diabetes Smoking Heavy alcohol use Physical inactivity and obesity Atrial Fibrillation (irregular heartbeat) Family history of stroke Acknowledgment I hereby acknowledge receipt of these instructions and information above. I understand that I have received Emergency Treatment only which is not a substitute for complete medical care and acknowledge that all of my medical problems may not be known, identified, or treated prior to my release. I UNDERSTAND THE NEED TO ARRANGE FOLLOW-UP CARE WITH THE PHYSICIAN INDICATED. I UNDERSTAND THAT I SHOULD CONTACT MY PHYSICIAN IMMEDIATELY OR RETURN TO THE EMERGENCY DEPARTMENT IF MY CONDITION WORSENS, FAILS TO IMPROVE, OR NEW SYMPTOMS APPEAR. Vital Signs B/P PULSE RESP. RATE TEMPERATURE PULSE OX Signature of Emergency Provider Date / Time Signature of Emergency Nurse Date / Time Reminder: Be sure to sign up for the [facility] patient portal, which gives you 09/04 access to your medical information ??? including these discharge instructions ??? using your computer, smartphone, or tablet. Just go to [employer] to get started. Questions? Call . Acknowledgment I hereby acknowledge receipt of these instructions and information above. I understand that I have received Emergency Treatment only which is not a substitute for complete medical care and acknowledge that all of my medical problems may not be known, identified, or treated prior to my release. I UNDERSTAND THE NEED TO ARRANGE FOLLOW-UP CARE WITH THE PHYSICIAN INDICATED. I UNDERSTAND THAT I SHOULD CONTACT MY PHYSICIAN IMMEDIATELY OR RETURN TO THE EMERGENCY DEPARTMENT IF MY CONDITION WORSENS, FAILS TO IMPROVE, OR NEW SYMPTOMS APPEAR. Signature of Patient / Responsible Person Date / Time Please provide a telephone number where you can be reached. The best time to call is between: It is permissible to leave a message if no answer: Yes____ No____ Nurse Providing Instructions: Emergency Physician: Electronically signed by Sabine, [facility] Conversion Engraver Picture Cerner at 12/31/2022 9:50 AM CDT documented in this encounter Plan of Treatment Not on file documented as of this encounter Visit Diagnoses Not on filedocumented in this encounter Care Teams Collection Specialist Relationship Specialty Start Date End Date Benny Varela MD [address] [place] [id number] PCP - General Internal Medicine 05/28/25 documented as of this encounter
--- OUTSIDE RECORDS SUMMARY | 2025-07-02 09:33 | XMS_ITS | Encounter Summary ---
Author Organization [employer] ([place], [place], [place], [place]) Address [address] [place] [address] Care Team Providers Care Fire Prevention Chief Name Role Phone Benny Varela MD Primary Care Provider + Encounter Details Date Type Department Care Team (Late st Contact Info) Description 12/06/2018 Transcribed Document [facility] [place] [facility] [place] [address] ProviderMaria Elena MD [address] [place] [address] [id number] Social History Tobacco Use Types Packs/Day Years Used Date Smoking Tobacco: Never Assessed Comments Unknown Sex and Gender Information Value Date Recorded Sex Assigned at Not on file Legal Sex Female 5:38 PM CDT Gender Identity Not on file Sexual Orientation Not on file documented as of this encounter Miscellaneous Notes * Cerner Conversion Note - Historical ProviderMD - 12/06/2018 10:44 AM CDT ED Triage Entered On: 12/06/2018 10:54 EDT Performed On: 12/06/2018 10:52 EDT by Marilu Jauregui INTERFACE ANALYST Triage Across the Room Triage Date/Time : 12/06/2018 10:52 EDT Chief Complaint : pt c/o lower abd pain with possible rectal bleed, pt had bright red blood when she wiped, no N/V/D, normal BM yesteray, Marilu Jauregui RN - 12/06/2018 10:52 EDT DCP GENERIC CODE Tracking Acuity : 3 - Urgent Tracking Group : [facility] Marilu Jauregui RN - 12/06/2018 10:52 EDT Mode of Arrival : Ambulatory Transported to ED by : Private vehicle To Room Via : Wheelchair Accompanied By : Unaccompanied ED Vital Signs : Document Height & Weight : Document ED Allergies : Document ED Reason for Visit : Document Tetanus Immunization : Greater than 5 years Tried to Harm Yourself in the Past? : No Thoughts of Harming/Killing Yourself : No Recent Thoughts of Harming/Killing Others : No Soft Water Mechanic Needed : No Marilu Jauregui RN - 12/06/2018 10:52 EDT Infectious Disease History Infectious Disease History : Chicken pox/Shingles Fever/Chills Last 48 Hours : No Travel To Regions with Travel Advisories : No Travel Outside [place] Within Last 30 Days : No Contact With Traveler to Advisory Region : No Tuberculosis Symptoms : None Marilu Jauregui RN - 12/06/2018 10:52 EDT Vital Signs ED Temperature Source : Oral Temperature Mode : Fahrenheit Temperature, Fahrenheit : 97.2 Deg F ED Pain : Yes Clinical Temperature, C : 36.2 Deg C Oxygen Therapy Mode : Room air Peripheral Pulse Rate : 94 bpm Respiratory Rate : 16 Breaths/Min Systolic Blood Pressure : 139 mmHg Diastolic Blood Pressure : 76 mmHg Oxygen Saturation : 99 % Marilu Jauregui RN - 12/06/2018 10:52 EDT Allergy (As Of: 12/06/2018 10:54:50 EDT) Allergies (Active) Latex Estimated Onset Date: Unspecified ; Created By: TERRA SIMS RN; Reaction Status: Active ; Category: Drug ; Substance: Latex ; Type: Allergy ; Updated By: TERRA SIMS RN; Reviewed Date: 12/06/2018 10:54 EDT Lortab Estimated Onset Date: Unspecified ; Created By: TERRA SIMS RN; Reaction Status: Active ; Category: Drug ; Substance: Lortab ; Type: Allergy ; Updated By: TERRA SIMS RN; Reviewed Date: 12/06/2018 10:54 EDT Diagnosis Control ED (As Of: 12/06/2018 10:54:50 EDT) Problems(Active) Depression (SNOMED CT :58577415 ) Name of Problem: Depression ; Recorder: ANDRE VILLA RN; Confirmation: Confirmed ; Classification: Medical ; Code: [id number] ; Contributor System: PowerChart ; Last Updated: 02/08/2018 8:31 EDT ; Life Cycle Date: 02/08/2018 ; Life Cycle Status: Active ; Vocabulary: SNOMED CT IBS (irritable bowel syndrome) (SNOMED CT :0560479963 ) Name of Problem: IBS (irritable bowel syndrome) ; Recorder: ANDRE VILLA RN; Confirmation: Confirmed ; Classification: Medical ; Code: [id number] ; Contributor System: [employer]one ; Last Updated: 02/08/2018 8:52 EDT ; Life Cycle Date: 02/08/2018 ; Life Cycle Status: Active ; Vocabulary: SNOMED CT Palpitations (SNOMED CT :109878696 ) Name of Problem: Palpitations ; Recorder: ANDRE VILLA RN; Confirmation: Confirmed ; Classification: Medical ; Code: [id number] ; Contributor System: Cliptone ; Last Updated: 02/08/2018 8:32 EDT ; Life Cycle Date: 02/08/2018 ; Life Cycle Status: Active ; Vocabulary: SNOMED CT Diagnoses(Active) Abdominal pain Date: 12/06/2018 ; Diagnosis Type: Reason For Visit ; Confirmation: Complaint of ; Clinical Dx: Abdominal pain ; Classification: Medical ; Clinical Service: Emergency medicine ; Code: PNED ; Probability: 0 ; Diagnosis Code: [id number] ED Height and Weight Height Source : Stated Height Entry Format : [place] Height, Feet : 5 ft(Converted to: 152 cm, 60 Inch) Height, Inches : 2 Inch(Converted to: 0 ft 2 Inch, 5.08 cm) Clinical Height : 157.48 cm Weight Source, ED : Critical estimated dosing weight Weight Entry Format : [place] Weight, Pounds : 266 lb Clinical Dosing Weight : 120.91 kg Body Surface Area (BSA) : 2.16 m2 Body Mass Index : 48.8 kg/m2 (>HHI) [place] Body Weight (IBW) : 49.73 kg Marilu Jauregui RN - 12/06/2018 10:52 EDT Pain Assessment Pain Assessment : Initial assessment Pain Scale Used : 0-10 Scale Location : Abdominal Marilu Jauregui RN - 12/06/2018 10:52 EDT Pain Scale Intensity : 9 Marilu Jauregui RN - 12/06/2018 10:52 EDT Image 4 - Images currently included in the form version of this document have not been included in the text rendition version of the form. Electronically signed by Antolin Regalado Conversion Data Entry Email Processor Cerner at 12/31/2022 9:58 AM CDT documented in this encounter Plan of Treatment Not on file documented as of this encounter Visit Diagnoses Not on filedocumented in this encounter Care Teams Fire Prevention Chief Relationship Specialty Start Date End Date Benny Varela MD [address] [place] [id number] PCP - General Internal Medicine 05/28/25 documented as of this encounter
--- OUTSIDE RECORDS SUMMARY | 2025-07-02 09:33 | XMS_ITS | Encounter Summary ---
Author Organization [email or web address] ([place], [place], [place], [place]) Address [address] [place] [address] Care Team Providers Care Warehouse Inventory Clerk Name Role Phone Benny Varela MD Primary Care Provider + Encounter Details Date Type Department Care Team (Late st Contact Info) Description 12/06/2018 Transcribed Document [facility] [place] Family Medicine [facility] [place] [address] ProviderMaria Elena MD [address] [place] [id number] Social History Tobacco Use Types Packs/Day Years [...] Elena ProviderMD - 12/06/2018 4:59 PM CDT [address] [place] [address] PERSON INFORMATION Name CHYNA JENKINS Age 22 Years 1995 Sex Female Language Sami PCP GLORY BROWN [facility] Marital Status Single Med Service Emergency Medicine Acct# Arrival 12/06/2018 10:44:00 Visit Reason Abdominal pain; ABD PAIN WITH ANAL BLEEDING Acuity 3 - Urgent LOS 000 06:15 Depart Date: 12/06/18 04:53 PM Address: [address] [place] [address] Comment: PROVIDER INFORMATION Provider Role Assigned Unassigned DONTAE GONSALEZ, BEAR KEEPER Nurse 12/06/2018 11:09:45 ODESSA SALGADO PA ED Physician 12/06/2018 11:19:23 DIAGNOSIS Ovarian cyst; Pneumonia PHYS DOC NOTES VITALS INFORMATION Vital Sign Triage Latest Temp Source Oral Oral Temp Mode Fahrenheit Fahrenheit Temp Fahrenheit 97.2 Deg F 98.0 Deg F Temp Celsius 02 Sat 99 % 98 % Respiratory Rate 16 Breaths/Min 18 Breaths/Min Peripheral Pulse Rate 94 bpm 85 bpm Apical Heart Rate Blood Pressure 139 mmHg / 76 mmHg 140 mmHg / 88 mmHg Comment: MEDICAL INFORMATION Allergy Info: Lortab; Latex Medications: Prescription Display acetaminophen (Tylenol Extra Strength 500 mg oral tablet) 1 Tab, Oral, Q6H, PRN for pain, X 5 Day(s), # 24 Tab, 0 Refill(s) naproxen (naproxen 500 mg oral tablet) 1 Tab, Oral, BID, with food, X 10 Day(s), # 20 Tab, 0 Refill(s) Comment: DISCHARGE INFORMATION Discharge Disposition: Home Discharge Location: PATIENT EDUCATION INFORMATION Instructions: Ovarian Cyst, [id number] Follow up: With: Address: When: GLORY BROWN [address] [place], [place] [id number] [facility] ([email or web address] Within 2 to 3 days Comments: Call for follow up appointment w pcp and voice writing reporter for repeat US in 6 weeks. take abx for pneumonia until finished return to er if symptoms worsen take meds as prescribed, hope you feel better! Comment: documented in this encounter Plan of Treatment Not on file documented as of this encounter Visit Diagnoses Not on filedocumented in this encounter Care Teams Warehouse Inventory Clerk Relationship Specialty Start Date End Date Benny Varela MD [address] [place] [id number] PCP - General Internal Medicine 05/28/25 documented as of this encounter
--- OUTSIDE RECORDS SUMMARY | 2025-07-02 09:33 | XMS_ITS | Encounter Summary ---
Author Organization [employer] ([place], [place], [place], [place]) Address [address] [place] [address] Care Team Providers Care Cesspool Cleaner Name Role Phone Benny Varela MD Primary Care Provider + Encounter Details Date Type Department Care Team (Late st Contact Info) Description 12/06/2018 Transcribed Document [facility] [place] Family Medicine [facility] [place] [address] ProviderMaria Elena MD [address] [place] [id number] Social History Tobacco Use Types Packs/Day Years Used Date Smoking Tobacco: Never Assessed Comments Unknown Sex and Gender Information Value Date Recorded Sex Assigned at Not on file Legal Sex Female 5:38 PM CDT Gender Identity Not on file Sexual Orientation Not on file documented as of this encounter Miscellaneous Notes * Cerner Conversion Note - Maria Elena ProviderMD - 12/06/2018 4:53 PM CDT ED Discharge Entered On: 12/06/2018 16:58 EDT Performed On: 12/06/2018 16:53 EDT by DONTAE GONSALEZ RN Discharge Process Patient Disposition : Discharge Personal Belongings With Patient : Yes Patient Education Completed : Yes Teaching Evaluation : Verbalizes understanding Link to Valuables and Belongings form : No IV Discontinued : Yes Nursing Documentation Completed : Yes DONTAE GONSALEZ RN - 12/06/2018 16:57 EDT ED Discharge Discharge To : Home with ambulatory/outpatient follow-up Mode Of Departure : Ambulatory, Other: [address] home Accompanied By : Responsible adult Discharge Instructions Reviewed With, Opportunity For Questions Given : Patient Prescriptions Given to Patient : Yes DONTAE GONSALEZ RN - 12/06/2018 16:57 EDT Electronically signed by Antolin [employer] Education Director Cerner at 12/31/2022 9:42 AM CDT documented in this encounter Plan of Treatment Not on file documented as of this encounter Visit Diagnoses Not on filedocumented in this encounter Care Teams Cesspool Cleaner Relationship Specialty Start Date End Date Benny Varela MD [address] [place] [phone] PCP - General Internal Medicine 05/28/25 documented as of this encounter
--- OUTSIDE RECORDS SUMMARY | 2025-07-02 09:33 | XMS_ITS | Encounter Summary ---
Author Organization [employer] ([place], [place], [place], [place]) Address [address] [place] [address] Care Team Providers Care Court Reporter Name Role Phone Benny Varela MD Primary Care Provider + Reason for Referral * Consultation (Routine) - Closed Specialty Diagnoses / Procedures Referred By Contac t Referred To Contact Behavioral Health Diagnoses ADHD, predominantly inattentive type Jose, Provider Not In The System, [address] [place] [id number] Caitlin Enciso, [place] [address] [place] [address] Phone: tel: fax: Referral ID Status Reason Start Date Expiration Date V isits Requested Visits Authorized [id number] Closed Specialty Services Required 05/13/2025 05/13/2026 1 1 Encounter Details Date Type Department Care Team (Late st Contact Info) Description 05/13/[address] [facility] Central Scheduling [address] [place] [id number] Antolin, Provider Not In The [place], [place] [address] ADHD, predominantly inattentive type (Primary Dx) Social History Tobacco Use Types Packs/Day Years Used Date Smoking Tobacco: Never Assessed Comments Unknown Sex and Gender Information Value Date Recorded Sex Assigned at Not on file Legal Sex Female 5:38 PM CDT Gender Identity Not on file Sexual Orientation Not on file documented as of this encounter Plan of Treatment Scheduled Referrals Name Type Priority Associated Diagnoses Orde r Schedule Ambulatory referral to Behavioral Health Outpatient Referral Routine ADHD, predominantly inattentive type Expected: 05/13/2025, Expires: 05/13/2026 documented as of this encounter Visit Diagnoses Diagnosis ADHD, predominantly inattentive type- Primary Attention deficit disorder without mention of hyperactivity documented in this encounter Care Teams Court Reporter Relationship Specialty Start Date End Date Benny Varela MD [address] [place] [phone] PCP - General Internal Medicine 05/28/25 documented as of this encounter
--- OUTSIDE RECORDS SUMMARY | 2025-07-02 09:33 | XMS_ITS | Referral Summary ---
Author Organization [employer] ([place], [place], [place], [place]) Address [address] [place] [address] Care Team Providers Care Chin Strap Sewer Name Role Phone Benny Varela MD Primary Care Provider + Encounters * This document contains information received from the source organization and may not represent a complete record from that organization. Date Type Department Care Team Description 05/13/2025 Outside Orders [facility] Central Scheduling [address] [place] [address] [facility], Provider Not In The System, ADHD, predominantly inattentive type (Primary Dx) from Last 3 Months Social History Tobacco Use Types Packs/Day Years Used Date Smoking Tobacco: Never Assessed Comments Unknown Sex and Gender Information Value Date Recorded Sex Assigned at Not on file Legal Sex Female 5:38 PM CDT Gender Identity Not on file Sexual Orientation Not on file Plan of Treatment Not on file Insurance [employer] Care Teams Chin Strap Sewer Relationship Specialty Start Date End Date Benny Varela MD [address] [place] [id number] PCP - General Internal Medicine 05/28/25
--- OUTSIDE RECORDS SUMMARY | 2025-07-02 09:33 | XMS_ITS | Encounter Summary ---
Author Organization [employer] ([place], [place], [place], [place]) Address [address] [place] [address] Care Team Providers Care Corn Husk Baler Name Role Phone Benny Varela MD Primary Care Provider + Encounter Details Date Type Department Care Team (Late st Contact Info) Description 12/06/2018 Transcribed Document [facility] [place] Family Medicine [facility] [place] [address] ProviderMaria Elena MD [address] [place] [phone] Social History Tobacco Use Types Packs/Day Years [...] ProviderMD - 12/06/2018 10:44 AM CDT ED Assessment Entered On: 12/06/2018 11:35 EDT Performed On: 12/06/2018 11:33 EDT by DONTAE GONSALEZ RN ED Quick Look Assessment Level of Consciousness : Alert, Awake Affect/Behavior : Appropriate Orientation : Oriented x 4 Skin Color : Other: wnl Skin Temperature : Warm Skin Description : Dry DONTAE GONSALEZ RN - 12/06/2018 11:33 EDT ED General-Functional Assess Information Obtained From : Patient Preferred Communication Mode : Verbal Communication Barrier : None Primary Language : Azeri Any Spiritual/Cultural Needs or Requests : No Currently in Unsafe Situation : No DONTAE GONSALEZ RN - 12/06/2018 11:33 EDT Social Habits Smoking Status : Never (less than 100 in lifetime; none in last 30 days) Smokeless Tobacco Status : Never Desires Tobacco Cessation Calc : 0 DONTAE GONSALEZ RN - 12/06/2018 11:33 EDT Social History (As Of: 12/06/2018 11:35:41 EDT) Tobacco: Use in Last 12 Months: No. (Last Updated: 09/19/2015 18:55:06 EST by ALVINA LYNN, RN) Alcohol: Alcohol Use History No. (Last Updated: 09/19/2015 18:55:17 EST by ALVINA LYNN, JONATHAN) Substance Abuse: Drug Use Hx: No. (Last Updated: 09/19/2015 18:55:21 EST by ALVINA LYNN, JONATHAN) Gastrointestinal ED Gastrointestinal Symptoms : Abdominal pain DONTAE GONSALEZ RN - 12/06/2018 11:33 EDT Bowel Sounds Bowel Sounds All Quadrants : Active LLQ : Active LUQ : Active RLQ : Active RUQ : Active DONTAE GONSALEZ RN - 12/06/2018 11:33 EDT Gastrointestinal Assessment Comment : reports seeing bright red blood on toilet tissue and a tampon string this am, reports lower abd pain/pelvic pain that radiates to back DONTAE GONSALEZ RN - 12/06/2018 11:33 EDT documented in this encounter Plan of Treatment Not on file documented as of this encounter Visit Diagnoses Not on filedocumented in this encounter Care Teams Corn Husk Baler Relationship Specialty Start Date End Date Benny Varela MD [address] [place] [phone] PCP - General Internal Medicine 05/28/25 documented as of this encounter
--- OUTSIDE RECORDS SUMMARY | 2025-07-02 09:33 | XMS_ITS | Encounter Summary ---
Author Organization [email or web address] ([place], [place], [place], [place]) Address [address] [place] [address] Care Team Providers Care Livestock Laborer Name Role Phone Benny Varela MD Primary Care Provider + Encounter Details Date Type Department Care Team (Late st Contact Info) Description 12/06/2018 Transcribed Document [facility] [place] [facility] [place] [address] ProviderMaria Elena MD [address] [place] [phone] Social History Tobacco Use Types Packs/Day Years Used Date Smoking Tobacco: Never Assessed Comments Unknown Sex and Gender Information Value Date Recorded Sex Assigned at Not on file Legal Sex Female 5:38 PM CDT Gender Identity Not on file Sexual Orientation Not on file documented as of this encounter Miscellaneous Notes * Cerner Conversion Note - Historical ProviderMD - 12/06/2018 2:38 PM CDT Pain Assessment Entered On: 12/06/2018 16:40 EDT Performed On: 12/06/2018 15:13 EDT by DONTAE GONSALEZ RN Intervention Information: morphine Performed by DONTAE GONSALEZ RN on 12/06/2018 14:43:00 EDT morphine,2mg IV Push,Peripheral Line 1 Pain Assessment Pain Assessment : Follow-up assessment Pain Scale Used : 0-10 Scale Pain Improved by Intervention : Yes DONTAE GONSALEZ RN - 12/06/2018 16:40 EDT Pain Scale Intensity : 3 DONTAE GONSALEZ RN - 12/06/2018 16:40 EDT Image 4 - Images currently included in the form version of this document have not been included in the text rendition version of the form. documented in this encounter Plan of Treatment Not on file documented as of this encounter Visit Diagnoses Not on filedocumented in this encounter Care Teams Livestock Laborer Relationship Specialty Start Date End Date Benny Varela MD [address] [place] [id number] PCP - General Internal Medicine 05/28/25 documented as of this encounter
[2025-07-02 15:12] LABS: Antinuclear Antibodies (ANA) Positive (Negative)
[2025-07-02 17:10] LABS: EBV Nuclear Antigen Ab, IgG >600.0 U/mL (0.0-17.9)
== END 2025-07-01 23:59 ==
LOC: LAB.DROPOF 07-02 09:24
PROVIDERS: PCP Nurse Practitioner Family; Visit Provider Nurse Practitioner Family
DX: M79.10 Myalgia, unspecified site (principal); D50.9 Iron deficiency anemia, unspecified; R79.89 Other specified abnormal findings of blood chemistry; E28.2 Polycystic ovarian syndrome; M25.50 Pain in unspecified joint; E03.9 Hypothyroidism, unspecified
CPT/HCPCS: 82306; 82533; 82607; 82627; 82670; 82728; 82746; 83540; 83550; 83735; 84144; 84402; 84436; 84443; 84481; 85025; 86140; 86200; 86644; 86645; 86664; 86665; 87476